=== PATIENT | female | born 1935 | race Caucasian/White ===

== ENCOUNTER → 2017-05-14 | Outpatient (REF) | payer OTHER, MEDICAID | LOC: M SFHCADAM 08:41 | PROVIDERS: ATTEND Physician Assistant Medical | DX: E78.2 Mixed hyperlipidemia (principal); I10 Essential (primary) hypertension; Z53.8 Procedure and treatment not carried out for other reasons ==

== ENCOUNTER → 2017-05-16 | Outpatient (CLI) | payer OTHER, MEDICAID ==
[2017-05-16 17:53] LABS: BASO % 0.5 % (0.0-1.0); EOS # 0.3 K/mm3 (0.0-0.50); EOS % 4.3 % (0.0-3.0); LARGE UNSTAINED CELL # 0.1 K/mm3 (0.0-0.4); LARGE UNSTAINED CELL % 2.1 % (0.0-4.0); LYMPH # 1.9 K/mm3 (1.5-4.5); LYMPH % 29.7 % (24.0-44.0); MEAN CORPUSCULAR HEMOGLOBIN 30.1 pg (27.0-33.0); MEAN CORPUSCULAR VOLUME 93.9 fl (80.0-96.0); MONO # 0.3 K/mm3 (0.0-0.8); MONO % 5.4 % (0.0-5.0); NEUTROPHILS # 3.5 K/mm3 (1.8-7.7); PLATELET COUNT, AUTOMATED 219 k/mm3 (150-450); RED CELL DISTRIBUTION WIDTH 12.9 % (11.5-14.5)
[2017-05-16 18:50] LABS: ALBUMIN/GLOBULIN RATIO 1.29 (1.00-1.93); ALKALINE PHOSPHATASE 363 U/L (45-117); ALT/SGPT 131 U/L (12-78); ANION GAP 9 MEQ/L (8-16); AST/SGOT 87 U/L (15-37); BILIRUBIN,TOTAL 0.7 MG/DL (0.2-1.0); BLOOD UREA NITROGEN 17 MG/DL (7-18); CALCIUM LEVEL 9.2 MG/DL (8.8-10.2); CARBON DIOXIDE LEVEL 29 MEQ/L (21-32); CHLORIDE LEVEL 105 MEQ/L (98-107); CHOLESTEROL LEVEL 184 MG/DL (<200); CREATININE FOR GFR 0.87 MG/DL (0.55-1.02); GLOMERULAR FILTRATION RATE > 60.0 (>32); GLUCOSE, FASTING 105 MG/DL (83-110); POTASSIUM SERUM 4.6 MEQ/L (3.5-5.1); SODIUM LEVEL 143 MEQ/L (136-145); TOTAL PROTEIN 7.1 GM/DL (6.4-8.2); TRIGLYCERIDES LEVEL 119 MG/DL (<150)
== END ==
LOC: M WUC 08:04
PROVIDERS: ATTEND Physician Assistant Medical
DX: E78.2 Mixed hyperlipidemia (principal); I10 Essential (primary) hypertension; E55.9 Vitamin D deficiency, unspecified

== ENCOUNTER → 2017-11-30 | Outpatient (REF) | payer OTHER, MEDICAID ==
[2017-11-30 20:27] LABS: ALBUMIN 3.8 GM/DL (3.2-5.2); ALBUMIN/GLOBULIN RATIO 1.15 (1.00-1.93); ALKALINE PHOSPHATASE 150 U/L (45-117); ALT/SGPT 33 U/L (12-78); ANION GAP 6 MEQ/L (8-16); AST/SGOT 23 U/L (7-37); BILIRUBIN,TOTAL 0.3 MG/DL (0.2-1.0); BLOOD UREA NITROGEN 15 MG/DL (7-18); CALCIUM LEVEL 9.4 MG/DL (8.8-10.2); CARBON DIOXIDE LEVEL 33 MEQ/L (21-32); CHLORIDE LEVEL 104 MEQ/L (98-107); CREATININE FOR GFR 0.96 MG/DL (0.55-1.30); GLOMERULAR FILTRATION RATE 59.5 (>32); GLUCOSE, FASTING 110 MG/DL (70-100); POTASSIUM SERUM 3.8 MEQ/L (3.5-5.1); SODIUM LEVEL 143 MEQ/L (136-145); TOTAL PROTEIN 7.1 GM/DL (6.4-8.2)
== END ==
LOC: M SFHCADAM 13:34
DX: R79.89 Other specified abnormal findings of blood chemistry (principal)
CPT/HCPCS: 80053

== ENCOUNTER → 2018-07-01 | Outpatient (REF) | payer OTHER, MEDICAID ==
[2018-07-01 12:52] LABS: BASO % 0.3 % (0.0-1.0); EOS # 0.2 10^3/uL (0.0-0.50); EOS % 2.2 % (0.0-3.0); HEMOGLOBIN 12.4 g/dl (12.0-15.5); IMMATURE GRANULOCYTE % 0.1 % (0-3.0); LYMPH # 2.2 10^3/uL (1.5-4.5); LYMPH % 32.1 % (24.0-44.0); MEAN CORPUSCULAR HEMOGLOBIN 30.5 pg (27.0-33.0); MEAN CORPUSCULAR HGB CONC 32.6 g/dl (32.0-36.5); MEAN CORPUSCULAR VOLUME 93.6 fl (80.0-96.0); MONO # 0.4 10^3/uL (0.0-0.8); MONO % 6.3 % (0.0-5.0); PLATELET COUNT, AUTOMATED 217 10^3/uL (150-450); RED BLOOD COUNT 4.06 10^6/uL (4.00-5.40); RED CELL DISTRIBUTION WIDTH 12.8 % (11.5-14.5); WHITE BLOOD COUNT 6.8 10^3/uL (4.0-10.0)
[2018-07-01 13:09] LABS: ALBUMIN 3.6 GM/DL (3.2-5.2); ALBUMIN/GLOBULIN RATIO 1.09 (1.00-1.93); ALKALINE PHOSPHATASE 135 U/L (45-117); ALT/SGPT 35 U/L (12-78); ANION GAP 5 MEQ/L (8-16); AST/SGOT 23 U/L (7-37); BILIRUBIN,TOTAL 0.5 MG/DL (0.2-1.0); BLOOD UREA NITROGEN 17 MG/DL (7-18); CALCIUM LEVEL 9.1 MG/DL (8.8-10.2); CARBON DIOXIDE LEVEL 32 MEQ/L (21-32); CHLORIDE LEVEL 106 MEQ/L (98-107); CHOLESTEROL LEVEL 161 MG/DL (<200); CHOLESTEROL RISK RATIO 2.555 (<5); CREATININE FOR GFR 0.91 MG/DL (0.55-1.30); FREE T4 0.87 NG/DL (0.76-1.46); GLOMERULAR FILTRATION RATE > 60.0 (>32); GLUCOSE, FASTING 99 MG/DL (70-100); HDL CHOLESTEROL 63 MG/DL (>40); LDL CHOLESTEROL 79 MG/DL (<100); NON-HDL-C 98 MG/DL; POTASSIUM SERUM 3.6 MEQ/L (3.5-5.1); SODIUM LEVEL 143 MEQ/L (136-145); TOTAL PROTEIN 6.9 GM/DL (6.4-8.2); TRIGLYCERIDES LEVEL 95 MG/DL (<150)
== END ==
LOC: M SFHCADAM 08:13
DX: I10 Essential (primary) hypertension (principal); E78.2 Mixed hyperlipidemia; F03.90 Unspecified dementia, unspecified severity, without behavioral disturbance, psychotic disturbance, mood disturbance, and anxiety
CPT/HCPCS: 80053

== ENCOUNTER → 2018-07-31 | Outpatient (REF) | payer OTHER, MEDICAID | LOC: M LAB REF 10:26 | DX: N39.0 Urinary tract infection, site not specified (principal) | CPT/HCPCS: 87086 ==

== ENCOUNTER → 2019-08-01 | Outpatient (REF) | payer MEDICARE, MEDICAID ==
[2019-08-01 13:06] LABS: BASO % 0.1 % (0.0-1.0); EOS # 0.1 10^3/uL (0.0-0.5); EOS % 0.8 % (0.0-3.0); HEMATOCRIT 41.7 % (36.0-47.0); HEMOGLOBIN 13.2 g/dl (12.0-15.5); LYMPH # 1.8 10^3/uL (1.5-5.0); LYMPH % 23.7 % (24.0-44.0); MEAN CORPUSCULAR HEMOGLOBIN 30.3 pg (27.0-33.0); MEAN CORPUSCULAR HGB CONC 31.7 g/dl (32.0-36.5); MEAN CORPUSCULAR VOLUME 95.9 fl (80.0-96.0); MONO # 0.5 10^3/uL (0.0-0.8); MONO % 6.6 % (0.0-5.0); NEUTROPHILS # 5.1 10^3/uL (1.5-8.5); NEUTROPHILS % 68.5 % (36.0-66.0); PLATELET COUNT, AUTOMATED 214 10^3/uL (150-450); RED BLOOD COUNT 4.35 10^6/uL (4.00-5.40); WHITE BLOOD COUNT 7.4 10^3/uL (4.0-10.0)
[2019-08-01 13:48] LABS: ALBUMIN 3.8 GM/DL (3.2-5.2); ALT/SGPT 28 U/L (12-78); BILIRUBIN,TOTAL 0.5 MG/DL (0.2-1.0); BLOOD UREA NITROGEN 15 MG/DL (7-18); CALCIUM LEVEL 9.5 MG/DL (8.8-10.2); CARBON DIOXIDE LEVEL 29 MEQ/L (21-32); CHLORIDE LEVEL 105 MEQ/L (98-107); CHOLESTEROL LEVEL 181 MG/DL (<200); CHOLESTEROL RISK RATIO 2.967 (<5); CREATININE FOR GFR 0.94 MG/DL (0.55-1.30); GLOMERULAR FILTRATION RATE > 60.0 (>32); GLUCOSE, FASTING 101 MG/DL (70-100); HDL CHOLESTEROL 61 MG/DL (>40); LDL CHOLESTEROL 95 MG/DL (<100); NON-HDL-C 120 MG/DL; POTASSIUM SERUM 3.9 MEQ/L (3.5-5.1); SODIUM LEVEL 141 MEQ/L (136-145); TOTAL PROTEIN 7.1 GM/DL (6.4-8.2); TRIGLYCERIDES LEVEL 124 MG/DL (<150)
== END ==
LOC: M SFHCADAM 09:35
PROVIDERS: ATTEND Physician Assistant Medical
DX: I10 Essential (primary) hypertension (principal); F41.9 Anxiety disorder, unspecified; K21.9 Gastro-esophageal reflux disease without esophagitis; E78.2 Mixed hyperlipidemia; R51 Headache; Z23 Encounter for immunization
CPT/HCPCS: 80053; 80061; 84443; 85025; 90682; G0008; G0463

== ENCOUNTER → 2020-08-27 | Outpatient (REF) | payer MEDICARE, MEDICAID ==
[2020-08-27 12:45] LABS: BASO % 0.2 % (0.0-1.0); EOS # 0.1 10^3/uL (0.0-0.5); EOS % 0.9 % (0.0-3.0); HEMATOCRIT 40.1 % (36.0-47.0); HEMOGLOBIN 12.4 g/dl (12.0-15.5); LYMPH # 1.8 10^3/uL (1.5-5.0); MEAN CORPUSCULAR HEMOGLOBIN 28.9 pg (27.0-33.0); MEAN CORPUSCULAR HGB CONC 30.9 g/dl (32.0-36.5); MEAN CORPUSCULAR VOLUME 93.5 fl (80.0-96.0); MONO # 0.7 10^3/uL (0.0-0.8); MONO % 7.5 % (0.0-5.0); NEUTROPHILS # 6.4 10^3/uL (1.5-8.5); NEUTROPHILS % 71.2 % (36.0-66.0); PLATELET COUNT, AUTOMATED 245 10^3/uL (150-450); RED BLOOD COUNT 4.29 10^6/uL (4.00-5.40)
[2020-08-27 13:04] LABS: ALBUMIN 3.7 GM/DL (3.2-5.2); BILIRUBIN,TOTAL 0.4 MG/DL (0.2-1.0); CALCIUM LEVEL 9.6 MG/DL (8.8-10.2); CHOLESTEROL RISK RATIO 2.738 (<5); CREATININE FOR GFR 0.99 MG/DL (0.55-1.30); THYROID STIMULATING HORMONE 2.99 uIU/ML (0.358-3.740)
== END ==
LOC: M SFHCADAM 09:35
PROVIDERS: ATTEND Physician Assistant Medical
DX: K21.9 Gastro-esophageal reflux disease without esophagitis (principal); I10 Essential (primary) hypertension; E78.2 Mixed hyperlipidemia

== ENCOUNTER → 2022-01-23 | Outpatient (REF) | payer MEDICARE, MEDICAID ==
[2022-01-23 13:33] LABS: APPEARANCE, URINE CLEAR (CLEAR); BACTERIA, URINE AUTO NEGATIVE (NEGATIVE); BILIRUBIN, URINE AUTO NEGATIVE (NEGATIVE); BLOOD, URINE BLOOD NEGATIVE (NEGATIVE); COLOR, URINE YELLOW (YELLOW); GLUCOSE, URINE (UA) AUTO NEGATIVE (NEGATIVE); KETONE, URINE AUTO NEGATIVE (NEGATIVE); LEUKOCYTE ESTERASE, URINE AUTO NEGATIVE (NEGATIVE); NITRITE, URINE AUTO NEGATIVE (NEGATIVE); PROTEIN, URINE AUTO NEGATIVE (NEGATIVE); RBC, URINE AUTO 1 /HPF (0-3); SPECIFIC GRAVITY URINE AUTO 1.008 (1.002-1.035); SQUAMOUS EPITHELIAL CELL UR AU 2 /HPF (0-6); UROBILINOGEN, URINE AUTO 0.2 mg/dL (0.0-2.0); WBC, URINE AUTO 1 /HPF (0-3)
== END ==
LOC: M SFHCADAM 09:57
PROVIDERS: ATTEND Physician Assistant Medical
DX: R35.0 Frequency of micturition (principal)

== ENCOUNTER → 2022-04-14 | Outpatient (REF) | payer MEDICARE, MEDICAID ==
[2022-04-14 13:24] LABS: BASO % 0.2 % (0.0-1.0); EOS # 0.1 10^3/uL (0.0-0.5); HEMATOCRIT 37.4 % (36.0-47.0); HEMOGLOBIN 11.6 g/dl (12.0-15.5); LYMPH # 1.8 10^3/uL (1.5-5.0); LYMPH % 22.2 % (24.0-44.0); MEAN CORPUSCULAR HEMOGLOBIN 27.4 pg (27.0-33.0); MEAN CORPUSCULAR VOLUME 88.4 fl (80.0-96.0); MONO # 0.6 10^3/uL (0.0-0.8); MONO % 7.2 % (2.0-8.0); NEUTROPHILS # 5.7 10^3/uL (1.5-8.5); NEUTROPHILS % 69.2 % (36.0-66.0); PLATELET COUNT, AUTOMATED 212 10^3/uL (150-450); RED BLOOD COUNT 4.23 10^6/uL (4.00-5.40); WHITE BLOOD COUNT 8.2 10^3/uL (4.0-10.0)
[2022-04-14 13:56] LABS: ALBUMIN 3.9 GM/DL (3.2-5.2); ALT/SGPT 20 U/L (12-78); BILIRUBIN,TOTAL 0.4 MG/DL (0.2-1.0); BLOOD UREA NITROGEN 13 MG/DL (7-18); CALCIUM LEVEL 9.4 MG/DL (8.8-10.2); CARBON DIOXIDE LEVEL 29 MEQ/L (21-32); CHLORIDE LEVEL 106 MEQ/L (98-107); CREATININE FOR GFR 0.98 MG/DL (0.55-1.30); FREE T4 0.93 NG/DL (0.76-1.46); GLOMERULAR FILTRATION RATE 57.4 (>32); GLUCOSE, FASTING 98 MG/DL (70-100); POTASSIUM SERUM 3.8 MEQ/L (3.5-5.1); SODIUM LEVEL 141 MEQ/L (136-145)
[2022-04-14 14:14] LABS: TOTAL 25(OH) VITAMIN D 44.6 NG/ML (30.0-100.0); VITAMIN B12 LEVEL 839 PG/ML
[2022-04-14 14:15] LABS: FOLATE > 24.0 NG/ML
== END ==
LOC: M SFHCADAM 09:45
PROVIDERS: ATTEND Physician Assistant
DX: R51.9 Headache, unspecified (principal); G89.29 Other chronic pain; H53.8 Other visual disturbances; R53.83 Other fatigue; I10 Essential (primary) hypertension; Z79.899 Other long term (current) drug therapy

== ENCOUNTER 2022-07-19 20:52 | Inpatient (IN) | payer MEDICARE, MEDICAID ==
[~2022-07-19] VITALS: Ht 162.6 cm; Wt 60.9 kg
[2022-07-19 21:24] LABS: BASO % 0.2 % (0.0-1.0); EOS % 0.2 % (0.0-3.0); HEMATOCRIT 35.5 % (36.0-47.0); HEMOGLOBIN 11.3 g/dl (12.0-15.5); LYMPH # 1.9 10^3/uL (1.5-5.0); LYMPH % 15.8 % (24.0-44.0); MEAN CORPUSCULAR HEMOGLOBIN 28.5 pg (27.0-33.0); MEAN CORPUSCULAR HGB CONC 31.8 g/dl (32.0-36.5); MEAN CORPUSCULAR VOLUME 89.6 fl (80.0-96.0); MONO # 0.6 10^3/uL (0.0-0.8); MONO % 5.4 % (2.0-8.0); NEUTROPHILS % 76.4 % (36.0-66.0); PLATELET COUNT, AUTOMATED 195 10^3/uL (150-450); RED BLOOD COUNT 3.96 10^6/uL (4.00-5.40); WHITE BLOOD COUNT 11.8 10^3/uL (4.0-10.0)
[2022-07-19] MEDS ORDERED: ISOVUE-370 76% 100ML VIAL As Ordered ONE (21:29)
[2022-07-19 21:36] LABS: ABG BASE EXCESS 1.6 (-2.0-2.0); ABG HCO3 26.1 MEQ/L (22.0-26.0); ABG O2 SATURATION 96.4 % (95.0-99.0); ABG PARTIAL PRESSURE CO2 40.9 mmHg (35.0-45.0); ABG PARTIAL PRESSURE O2 82.1 mmHg (75.0-100.0); ABG STANDARD HCO3 25.8 MEQ/L (22.0-26.0); ABG TOTAL CO2 27.4 MEQ/L (23.0-31.0); ABG pH (ARTERIAL) 7.423 UNITS (7.350-7.450)
[2022-07-19 21:37] LABS: PROTHROMBIN TIME 13.6 SECONDS (12.7-14.5)
[2022-07-19 21:38] LABS: PARTIAL THROMBOPLASTIN TIME 33.6 SECONDS (25.9-37.0)
[2022-07-19 21:58] LABS: ALBUMIN 3.1 GM/DL (3.2-5.2); ALT/SGPT 37 U/L (12-78); AMYLASE 42 U/L (25-115); BILIRUBIN,DIRECT 0.2 MG/DL (0.0-0.2); BILIRUBIN,TOTAL 0.6 MG/DL (0.2-1.0); BLOOD UREA NITROGEN 13 MG/DL (7-18); CALCIUM LEVEL 9.1 MG/DL (8.8-10.2); CARBON DIOXIDE LEVEL 29 MEQ/L (21-32); CHLORIDE LEVEL 107 MEQ/L (98-107); ETHYL ALCOHOL (ETHANOL) < 0.003 % (0.000-0.010); GLOMERULAR FILTRATION RATE > 60.0 (>32); GLUCOSE, FASTING 137 MG/DL (70-100); LIPASE 93 U/L (73-393); POTASSIUM SERUM 3.3 MEQ/L (3.5-5.1); SODIUM LEVEL 141 MEQ/L (136-145); TOTAL PROTEIN 6.3 GM/DL (6.4-8.2)
[2022-07-19 22:00] LABS: CK-MB VALUE MASS 12.2 NG/ML (<3.6); MB/CK RELATIVE INDEX 4.6 (< OR =4)
[2022-07-19] MEDS ORDERED: ACETAMINOPHEN TAB 650MG DOSE (2X325MG) PO ONE (22:50)
[2022-07-19] MEDS ORDERED: ONDANSETRON 4MG 2ML VIAL IV ONE (23:50)
[2022-07-19] MEDS ORDERED: MORPHINE 2 MG/ML 1ML VIAL IV PRN (23:50)
[2022-07-19 23:51] LABS: AMPHETAMINES LEVEL URINE NEGATIVE (NEGATIVE); BARBITURATES URINE NEGATIVE (NEGATIVE); BENZODIAZEPINES URINE NEGATIVE (NEGATIVE); CANNABINOIDS URINE NEGATIVE (NEGATIVE); COCAINE METABOLITE URINE NEGATIVE (NEGATIVE); METHADONE URINE NEGATIVE (NEGATIVE); OPIATES URINE NEGATIVE (NEGATIVE); PHENCYCLIDINE URINE NEGATIVE (NEGATIVE)
[2022-07-20] MEDS ORDERED: UNRESOLVED CLARIFICATION ENTRY XX SCH (00:01)
[2022-07-20] MEDS ORDERED: LISI20TA33 PO (00:10)
[2022-07-20] MEDS ORDERED: OMEP40CA5 PO (00:10)
[2022-07-20] MEDS ORDERED: MEMA10TA19 PO (00:10)
[2022-07-20] MEDS ORDERED: XALA0.007 OU (00:10)
[2022-07-20] MEDS ORDERED: ATOR40TA75 PO (00:10)
[2022-07-20] MEDS ORDERED: QUET50TA4 PO (00:10)
[2022-07-20] MEDS ORDERED: ONDANSETRON 4MG 2ML VIAL IV PRN (00:30)
[2022-07-20] MEDS ORDERED: HOME MED LIST COMPLETE! XX SCH (00:30)
[2022-07-20] MEDS ORDERED: ACETAMINOPHEN TAB 650MG DOSE (2X325MG) PO PRN (00:30)
[2022-07-20] MEDS ORDERED: BENZONATATE 100MG CAPSULE PO PRN (00:35)
[2022-07-20] MEDS ORDERED: dexameTHASONE 20MG/5ML VIAL (J1100 PER 1MG) IV ONE (00:50)
[2022-07-20] MEDS ORDERED: REMDESIVIR 200 MG in NS 250 ML IV ONE (02:00)
[2022-07-20] MEDS: NS 1,000 ML IV SCH ×2 (02:12→11:39)
[2022-07-20] MEDS ORDERED: SODIUM CHLORIDE 0.9% INJ 10 ML SYR IV ONE (04:00)
[2022-07-20 07:15] LABS: HEMATOCRIT 36.9 % (36.0-47.0); HEMOGLOBIN 11.5 g/dl (12.0-15.5); MEAN CORPUSCULAR HEMOGLOBIN 28.4 pg (27.0-33.0); MEAN CORPUSCULAR HGB CONC 31.2 g/dl (32.0-36.5); MEAN CORPUSCULAR VOLUME 91.1 fl (80.0-96.0); PLATELET COUNT, AUTOMATED 193 10^3/uL (150-450); RED BLOOD COUNT 4.05 10^6/uL (4.00-5.40); WHITE BLOOD COUNT 9.8 10^3/uL (4.0-10.0)
[2022-07-20 07:41] LABS: BLOOD UREA NITROGEN 11 MG/DL (7-18); CALCIUM LEVEL 8.6 MG/DL (8.8-10.2); CARBON DIOXIDE LEVEL 27 MEQ/L (21-32); CHLORIDE LEVEL 109 MEQ/L (98-107); GLOMERULAR FILTRATION RATE > 60.0 (>32); GLUCOSE, FASTING 165 MG/DL (70-100); MAGNESIUM LEVEL 2.1 MG/DL (1.8-2.4); POTASSIUM SERUM 3.7 MEQ/L (3.5-5.1); SODIUM LEVEL 142 MEQ/L (136-145)
[2022-07-20] MEDS: MEMANTINE 5MG TABLET (NAMENDA) PO SCH ×2 (09:00→21:27)
[2022-07-20] MEDS: QUEtiapine FUMARATE 50MG TAB PO SCH (11:38)
[2022-07-20] MEDS: KETOROLAC 30 MG/ML 1ML VIAL IV PRN (11:38)
[2022-07-20] MEDS: MORPHINE 2 MG/ML 1ML VIAL IV PRN ×2 (11:38→18:26)
[2022-07-20] MEDS: guaiFENesin ER 600 MG TAB PO SCH ×2 (11:38→21:27)
[2022-07-20] MEDS: OMEPRAZOLE 20MG CAP PO SCH (11:38)
[2022-07-20] MEDS ORDERED: dexameTHASONE 20MG/5ML VIAL (J1100 PER 1MG) IV SCH (12:05)
[2022-07-20] MEDS: ACETAMINOPHEN TAB 650MG DOSE (2X325MG) PO SCH ×3 (15:43→21:27)
[2022-07-20] MEDS ORDERED: LIDOCAINE 2% 100MG/5ML SDV (FOR ANES.) As Ordered ONE (16:15)
[2022-07-20] MEDS ORDERED: KETAMINE HCL 200 MG/20 ML VIAL As Ordered ONE (16:15)
[2022-07-20] MEDS ORDERED: MIDAZOLAM INJ 2MG/2ML VIAL (J2250 PER 1MG) As Ordered ONE (16:15)
[2022-07-20] MEDS ORDERED: fentaNYL 100 MCG/2 ML INJECTION As Ordered ONE (16:15)
[2022-07-20] MEDS ORDERED: propofoL 200 MG/20 ML VIAL As Ordered ONE (16:15)
[2022-07-20 17:40] VITALS: BP 154/70
[2022-07-20 18:17] VITALS: BP 158/78
[2022-07-20 18:20] VITALS: BP 158/78
[2022-07-20 19:35] VITALS: BP 145/80
[2022-07-20 21:22] VITALS: BP 149/56
[2022-07-20] MEDS: ATORVASTATIN 20 MG TAB PO SCH (21:27)
[2022-07-20] MEDS: LIDOCAINE 5% (LIDODERM) PATCH TD SCH (21:28)
[2022-07-20] MEDS: LATANOPROST 0.005% OPHTH SOLN 2.5 ML OU SCH (21:28)
[2022-07-20 22:30] VITALS: BP 118/51
[2022-07-21] MEDS ORDERED: UNRESOLVED CLARIFICATION ENTRY XX SCH (00:01)
[2022-07-21] MEDS: ACETAMINOPHEN TAB 650MG DOSE (2X325MG) PO SCH ×6 (01:17→20:34)
[2022-07-21] MEDS: NS 1,000 ML IV SCH ×2 (01:17→06:30)
[2022-07-21 02:35] VITALS: BP 134/60
[2022-07-21] MEDS: MORPHINE 2 MG/ML 1ML VIAL IV PRN (04:09)
[2022-07-21 06:00] VITALS: BP 133/68; O2SAT 95
[2022-07-21] MEDS: REMDESIVIR 100 MG in NS 250 ML IV SCH (06:00)
[2022-07-21 06:56] LABS: HEMATOCRIT 28.6 % (36.0-47.0); MEAN CORPUSCULAR HEMOGLOBIN 28.8 pg (27.0-33.0); MEAN CORPUSCULAR HGB CONC 31.5 g/dl (32.0-36.5); MEAN CORPUSCULAR VOLUME 91.4 fl (80.0-96.0); PLATELET COUNT, AUTOMATED 163 10^3/uL (150-450); RED BLOOD COUNT 3.13 10^6/uL (4.00-5.40); WHITE BLOOD COUNT 10.2 10^3/uL (4.0-10.0)
[2022-07-21 07:25] LABS: ALBUMIN 1.9 GM/DL (3.2-5.2); ALT/SGPT 27 U/L (12-78); BILIRUBIN,DIRECT 0.2 MG/DL (0.0-0.2); BILIRUBIN,TOTAL 0.5 MG/DL (0.2-1.0); BLOOD UREA NITROGEN 18 MG/DL (7-18); CALCIUM LEVEL 6.1 MG/DL (8.8-10.2); CARBON DIOXIDE LEVEL 20 MEQ/L (21-32); CHLORIDE LEVEL 119 MEQ/L (98-107); GLOMERULAR FILTRATION RATE > 60.0 (>32); GLUCOSE, FASTING 80 MG/DL (70-100); MAGNESIUM LEVEL 1.6 MG/DL (1.8-2.4); SODIUM LEVEL 146 MEQ/L (136-145); TOTAL PROTEIN 4.2 GM/DL (6.4-8.2)
[2022-07-21] MEDS: SODIUM CHLORIDE 0.9% INJ 10 ML SYR IV SCH ×2 (07:44→17:35)
[2022-07-21] MEDS: **NOTE PATIENT COMMENT** MISC XX SCH (09:00)
[2022-07-21] MEDS: OMEPRAZOLE 20MG CAP PO SCH (09:53)
[2022-07-21] MEDS: QUEtiapine FUMARATE 50MG TAB PO SCH (09:53)
[2022-07-21] MEDS: guaiFENesin ER 600 MG TAB PO SCH ×2 (09:53→20:35)
[2022-07-21] MEDS: MEMANTINE 5MG TABLET (NAMENDA) PO SCH ×2 (09:53→20:35)
[2022-07-21 10:00] VITALS: BP 132/62
[2022-07-21] MEDS ORDERED: MAG SULF 1GM/100ML (MAG RUN) 1 GM in IV 1 EA IV SCH (13:00)
[2022-07-21] MEDS: POTASSIUM CHLORIDE 10MEQ SR TABLET PO SCH ×2 (13:40→17:36)
[2022-07-21 14:00] VITALS: BP 155/69
[2022-07-21] MEDS ORDERED: LIDOCAINE 1% MDV 20ML VIAL As Ordered ONE (15:18)
[2022-07-21] MEDS ORDERED: MORPHINE 2 MG/ML 1ML VIAL IV ONE ×2 (17:00→20:15)
[2022-07-21] MEDS ORDERED: POTASSIUM CHLORIDE 10MEQ SR TABLET PO SCH (17:30)
[2022-07-21] MEDS: MAG SULF 1GM/100ML (MAG RUN) 1 GM in IV 1 EA IV SCH ×2 (17:35→18:39)
[2022-07-21] MEDS: ENOXAPARIN 40MG/0.4ML SYRINGE (J1650 PER 10MG) SC SCH (17:35)
[2022-07-21] MEDS: dexameTHASONE 4 MG/ML 1ML VIAL (J1100 PER 1MG) IV SCH (17:36)
[2022-07-21 18:00] VITALS: BP 149/66
[2022-07-21] MEDS ORDERED: ASPIRIN 325 MG TAB PO ONE (18:25)
[2022-07-21 19:31] VITALS: BP 133/68
[2022-07-21] MEDS: SODIUM CHLORIDE 0.9% INJ 10 ML SYR IV PRN ×2 (19:48→20:36)
[2022-07-21] MEDS ORDERED: COMBIVENT RESPIMAT 100-20MCG INHALER 4GM INH PRN (20:20)
[2022-07-21] MEDS: LATANOPROST 0.005% OPHTH SOLN 2.5 ML OU SCH (20:35)
[2022-07-21] MEDS: ATORVASTATIN 20 MG TAB PO SCH (20:35)
[2022-07-21] MEDS: METOPROLOL TART 12.5 MG PER 1/2 TAB PO SCH (20:35)
[2022-07-21] MEDS: LIDOCAINE 5% (LIDODERM) PATCH TD SCH (20:36)
[2022-07-22 02:00] VITALS: BP 135/68
[2022-07-22 02:10] VITALS: O2SAT 95
[2022-07-22] MEDS: SODIUM CHLORIDE 0.9% INJ 10 ML SYR IV PRN ×6 (04:39→23:31)
[2022-07-22] MEDS: REMDESIVIR 100 MG in NS 250 ML IV SCH ×2 (04:43→06:05)
[2022-07-22] MEDS: ACETAMINOPHEN TAB 650MG DOSE (2X325MG) PO SCH ×7 (04:44→23:28)
[2022-07-22 04:45] VITALS: BP 175/71
[2022-07-22] MEDS ORDERED: MORPHINE 2 MG/ML 1ML VIAL IV ONE (05:00)
[2022-07-22 06:11] LABS: HEMATOCRIT 31.8 % (36.0-47.0); HEMOGLOBIN 10.2 g/dl (12.0-15.5); MEAN CORPUSCULAR HEMOGLOBIN 28.7 pg (27.0-33.0); MEAN CORPUSCULAR HGB CONC 32.1 g/dl (32.0-36.5); MEAN CORPUSCULAR VOLUME 89.6 fl (80.0-96.0); PLATELET COUNT, AUTOMATED 211 10^3/uL (150-450); RED BLOOD COUNT 3.55 10^6/uL (4.00-5.40); VENOUS BASE EXCESS -3.4 (-2.0-2.0); VENOUS HCO3 20.9 MEQ/L (23.0-27.0); VENOUS O2 SATURATION 98.8 % (60.0-80.0); VENOUS PARTIAL PRESSURE CO2 35.1 mmHg (38.0-50.0); VENOUS PARTIAL PRESSURE O2 146.5 mmHg (30.0-50.0); VENOUS PH 7.393 UNITS (7.330-7.430); VENOUS STANDARD HCO3 21.6 MEQ/L; WHITE BLOOD COUNT 9.4 10^3/uL (4.0-10.0)
[2022-07-22 06:47] LABS: BLOOD UREA NITROGEN 19 MG/DL (7-18); CARBON DIOXIDE LEVEL 25 MEQ/L (21-32); CHLORIDE LEVEL 114 MEQ/L (98-107); CREATININE FOR GFR 0.65 MG/DL (0.55-1.30); GLOMERULAR FILTRATION RATE > 60.0 (>32); GLUCOSE, FASTING 133 MG/DL (70-100); MAGNESIUM LEVEL 2.7 MG/DL (1.8-2.4); POTASSIUM SERUM 4.7 MEQ/L (3.5-5.1); SODIUM LEVEL 142 MEQ/L (136-145)
[2022-07-22] MEDS: SODIUM CHLORIDE 0.9% INJ 10 ML SYR IV SCH ×2 (07:57→17:05)
[2022-07-22] MEDS: ASPIRIN 81MG ENTERIC TABLET PO SCH (08:35)
[2022-07-22] MEDS: guaiFENesin ER 600 MG TAB PO SCH ×2 (08:42→23:27)
[2022-07-22] MEDS: K-PHOS ORIGINAL (POT.ACID PHOSPHATE) 500MG TAB PO SCH ×2 (08:42→23:26)
[2022-07-22] MEDS: MEMANTINE 5MG TABLET (NAMENDA) PO SCH ×2 (08:42→23:27)
[2022-07-22] MEDS: METOPROLOL TART 12.5 MG PER 1/2 TAB PO SCH ×2 (08:43→22:59)
[2022-07-22] MEDS: OMEPRAZOLE 20MG CAP PO SCH (08:43)
[2022-07-22] MEDS: QUEtiapine FUMARATE 25 MG TAB PO SCH (08:43)
[2022-07-22] MEDS: dexameTHASONE 4 MG/ML 1ML VIAL (J1100 PER 1MG) IV SCH (08:44)
[2022-07-22] MEDS: ENOXAPARIN 40MG/0.4ML SYRINGE (J1650 PER 10MG) SC SCH (08:44)
[2022-07-22] MEDS: **NOTE PATIENT COMMENT** MISC XX SCH (09:00)
[2022-07-22] MEDS: BARICITINIB 2MG TABLET (OLUMIANT) FOR EUA PO SCH (09:00)
[2022-07-22 10:00] VITALS: BP 173/81
[2022-07-22] MEDS ORDERED: FUROSEMIDE 20MG/2ML VIAL (J1940) IV ONE (10:30)
[2022-07-22] MEDS: MORPHINE 2 MG/ML 1ML VIAL IV PRN ×3 (11:02→23:29)
[2022-07-22] MEDS ORDERED: OLANZapine INTRAMUSCULAR 10MG VIAL IM ONE (14:55)
[2022-07-22] MEDS ORDERED: HALOPERIDOL 5MG/ML VIAL (J1630 PER 1) IV PRN (15:15)
[2022-07-22 21:00] VITALS: BP 166/71
[2022-07-22] MEDS ORDERED: amLODIPine 5 MG TAB PO ONE (21:00)
[2022-07-22] MEDS ORDERED: amLODIPine 5 MG TAB PO SCH (21:00)
[2022-07-22 22:57] VITALS: BP 143/77
[2022-07-22] MEDS: ATORVASTATIN 20 MG TAB PO SCH (23:26)
[2022-07-22] MEDS: LATANOPROST 0.005% OPHTH SOLN 2.5 ML OU SCH (23:28)
[2022-07-22] MEDS: DOCUSATE SODIUM 100MG CAPSULE PO SCH (23:28)
[2022-07-22] MEDS: LIDOCAINE 5% (LIDODERM) PATCH TD SCH (23:29)
[2022-07-23 03:58] VITALS: O2SAT 93
[2022-07-23] MEDS: ACETAMINOPHEN TAB 650MG DOSE (2X325MG) PO SCH ×5 (05:08→20:00)
[2022-07-23] MEDS: SODIUM CHLORIDE 0.9% INJ 10 ML SYR IV PRN (05:09)
[2022-07-23] MEDS: REMDESIVIR 100 MG in NS 250 ML IV SCH (05:09)
[2022-07-23 05:13] VITALS: BP 173/62
[2022-07-23] MEDS: MORPHINE 2 MG/ML 1ML VIAL IV PRN ×2 (05:16→08:28)
[2022-07-23 06:17] LABS: BASO % 0.2 % (0.0-1.0); HEMATOCRIT 32.8 % (36.0-47.0); HEMOGLOBIN 10.4 g/dl (12.0-15.5); LYMPH # 1.2 10^3/uL (1.5-5.0); LYMPH % 10.6 % (24.0-44.0); MEAN CORPUSCULAR HEMOGLOBIN 28.5 pg (27.0-33.0); MEAN CORPUSCULAR HGB CONC 31.7 g/dl (32.0-36.5); MEAN CORPUSCULAR VOLUME 89.9 fl (80.0-96.0); MONO # 0.8 10^3/uL (0.0-0.8); MONO % 7.3 % (2.0-8.0); NEUTROPHILS % 80.7 % (36.0-66.0); PLATELET COUNT, AUTOMATED 229 10^3/uL (150-450); RED BLOOD COUNT 3.65 10^6/uL (4.00-5.40); WHITE BLOOD COUNT 11.1 10^3/uL (4.0-10.0)
[2022-07-23] MEDS: SODIUM CHLORIDE 0.9% INJ 10 ML SYR IV SCH ×2 (06:33→17:46)
[2022-07-23 06:34] VITALS: BP 173/60
[2022-07-23 07:07] LABS: ALBUMIN 2.7 GM/DL (3.2-5.2); ALT/SGPT 33 U/L (12-78); BILIRUBIN,DIRECT 0.2 MG/DL (0.0-0.2); BILIRUBIN,TOTAL 0.6 MG/DL (0.2-1.0); BLOOD UREA NITROGEN 23 MG/DL (7-18); CALCIUM LEVEL 8.1 MG/DL (8.8-10.2); CARBON DIOXIDE LEVEL 27 MEQ/L (21-32); CHLORIDE LEVEL 110 MEQ/L (98-107); CREATININE FOR GFR 0.66 MG/DL (0.55-1.30); GLOMERULAR FILTRATION RATE > 60.0 (>32); GLUCOSE, FASTING 116 MG/DL (70-100); MAGNESIUM LEVEL 2.4 MG/DL (1.8-2.4); PHOSPHORUS LEVEL 2.1 MG/DL (2.5-4.9); POTASSIUM SERUM 4.2 MEQ/L (3.5-5.1); SODIUM LEVEL 141 MEQ/L (136-145); TOTAL PROTEIN 5.8 GM/DL (6.4-8.2)
[2022-07-23] MEDS: dexameTHASONE 4 MG/ML 1ML VIAL (J1100 PER 1MG) IV SCH (08:59)
[2022-07-23] MEDS: ENOXAPARIN 40MG/0.4ML SYRINGE (J1650 PER 10MG) SC SCH (08:59)
[2022-07-23] MEDS: OMEPRAZOLE 20MG CAP PO SCH (08:59)
[2022-07-23] MEDS ORDERED: DOCUSATE SODIUM 100MG CAPSULE PO SCH (09:00)
[2022-07-23] MEDS: BARICITINIB 2MG TABLET (OLUMIANT) FOR EUA PO SCH (09:00)
[2022-07-23] MEDS: KETOROLAC 30 MG/ML 1ML VIAL IV PRN (09:00)
[2022-07-23] MEDS: guaiFENesin ER 600 MG TAB PO SCH ×2 (09:01→22:30)
[2022-07-23] MEDS: QUEtiapine FUMARATE 25 MG TAB PO SCH (09:01)
[2022-07-23] MEDS: MEMANTINE 5MG TABLET (NAMENDA) PO SCH ×2 (09:01→22:30)
[2022-07-23] MEDS: METOPROLOL TART 12.5 MG PER 1/2 TAB PO SCH ×2 (09:01→21:00)
[2022-07-23] MEDS: **NOTE PATIENT COMMENT** MISC XX SCH (09:02)
[2022-07-23] MEDS: ASPIRIN 81MG ENTERIC TABLET PO SCH (09:02)
[2022-07-23] MEDS: DOCUSATE SODIUM 100MG CAPSULE PO SCH ×2 (09:02→22:30)
[2022-07-23] MEDS: MIRALAX *UNIT DOSE* 17GM PACKET PO SCH (09:02)
[2022-07-23 14:00] VITALS: BP 176/66
[2022-07-23] MEDS ORDERED: SODIUM PHOSPHATE INJ 20 MMOL in D5W 250 ML IV ONE (17:00)
[2022-07-23 18:26] VITALS: BP 124/51
[2022-07-23 20:00] VITALS: BP 153/60
[2022-07-23] MEDS: LIDOCAINE 5% (LIDODERM) PATCH TD SCH (21:00)
[2022-07-23] MEDS: LATANOPROST 0.005% OPHTH SOLN 2.5 ML OU SCH (21:00)
[2022-07-23] MEDS: PERCOCET 5MG/325MG TAB PO PRN (22:30)
[2022-07-23] MEDS: ATORVASTATIN 20 MG TAB PO SCH (22:31)
[2022-07-23] MEDS: amLODIPine 5 MG TAB PO SCH (22:32)
[2022-07-24] MEDS: ACETAMINOPHEN TAB 650MG DOSE (2X325MG) PO SCH ×4 (05:54→12:18)
[2022-07-24] MEDS: MORPHINE 2 MG/ML 1ML VIAL IV PRN (05:55)
[2022-07-24] MEDS: SODIUM CHLORIDE 0.9% INJ 10 ML SYR IV SCH ×2 (05:55→17:59)
[2022-07-24] MEDS: REMDESIVIR 100 MG in NS 250 ML IV SCH (05:55)
[2022-07-24 06:00] VITALS: BP 145/61
[2022-07-24 06:42] LABS: HEMATOCRIT 32.7 % (36.0-47.0); HEMOGLOBIN 10.4 g/dl (12.0-15.5); MEAN CORPUSCULAR HEMOGLOBIN 28.1 pg (27.0-33.0); MEAN CORPUSCULAR HGB CONC 31.8 g/dl (32.0-36.5); MEAN CORPUSCULAR VOLUME 88.4 fl (80.0-96.0); PLATELET COUNT, AUTOMATED 250 10^3/uL (150-450); WHITE BLOOD COUNT 8.8 10^3/uL (4.0-10.0)
[2022-07-24 07:12] LABS: BLOOD UREA NITROGEN 23 MG/DL (7-18); CARBON DIOXIDE LEVEL 26 MEQ/L (21-32); CHLORIDE LEVEL 108 MEQ/L (98-107); CREATININE FOR GFR 0.57 MG/DL (0.55-1.30); GLOMERULAR FILTRATION RATE > 60.0 (>32); GLUCOSE, FASTING 128 MG/DL (70-100); MAGNESIUM LEVEL 2.3 MG/DL (1.8-2.4); PHOSPHORUS LEVEL 2.4 MG/DL (2.5-4.9); POTASSIUM SERUM 3.7 MEQ/L (3.5-5.1); SODIUM LEVEL 140 MEQ/L (136-145)
[2022-07-24] MEDS: MIRALAX *UNIT DOSE* 17GM PACKET PO SCH (08:51)
[2022-07-24] MEDS: dexameTHASONE 4 MG/ML 1ML VIAL (J1100 PER 1MG) IV SCH (08:52)
[2022-07-24] MEDS: ENOXAPARIN 40MG/0.4ML SYRINGE (J1650 PER 10MG) SC SCH (08:53)
[2022-07-24] MEDS: OMEPRAZOLE 20MG CAP PO SCH (08:53)
[2022-07-24] MEDS: DOCUSATE SODIUM 100MG CAPSULE PO SCH ×2 (08:53→20:43)
[2022-07-24] MEDS: QUEtiapine FUMARATE 12.5 MG HALF-TAB PO SCH (08:54)
[2022-07-24] MEDS: MEMANTINE 5MG TABLET (NAMENDA) PO SCH ×2 (08:54→20:43)
[2022-07-24] MEDS: METOPROLOL TART 12.5 MG PER 1/2 TAB PO SCH ×2 (08:54→20:43)
[2022-07-24] MEDS: ASPIRIN 81MG ENTERIC TABLET PO SCH (08:54)
[2022-07-24] MEDS: guaiFENesin ER 600 MG TAB PO SCH ×2 (08:55→20:43)
[2022-07-24] MEDS: PERCOCET 5MG/325MG TAB PO PRN (08:56)
[2022-07-24] MEDS: SODIUM CHLORIDE 0.9% INJ 10 ML SYR IV PRN (08:57)
[2022-07-24] MEDS: **NOTE PATIENT COMMENT** MISC XX SCH (09:00)
[2022-07-24] MEDS ORDERED: NALOXONE INJ 0.4MG/1ML VIAL (J2310 PER 1MG) IV PRN (11:30)
[2022-07-24] MEDS: BARICITINIB 2MG TABLET (OLUMIANT) FOR EUA PO SCH (12:18)
[2022-07-24] MEDS: PERCOCET 5MG/325MG TAB PO SCH ×3 (13:18→22:59)
[2022-07-24 14:00] VITALS: BP 167/60
[2022-07-24] MEDS ORDERED: POTASSIUM PHOSPHATE INJ 20 MMOL in D5W 250 ML IV ONE (14:00)
[2022-07-24] MEDS ORDERED: MORPHINE 2 MG/ML 1ML VIAL IV PRN (14:30)
[2022-07-24 20:04] VITALS: BP 135/99
[2022-07-24] MEDS: ATORVASTATIN 20 MG TAB PO SCH (20:43)
[2022-07-24] MEDS: amLODIPine 5 MG TAB PO SCH (20:44)
[2022-07-24] MEDS: LIDOCAINE 5% (LIDODERM) PATCH TD SCH (20:44)
[2022-07-24] MEDS: LATANOPROST 0.005% OPHTH SOLN 2.5 ML OU SCH (22:58)
[2022-07-24 23:58] VITALS: O2SAT 94
[2022-07-25] VITALS (7 sets, daily range): BP systolic 154–189; BP diastolic 64–75
[2022-07-25] MEDS: SODIUM CHLORIDE 0.9% INJ 10 ML SYR IV PRN ×2 (03:17→04:04)
[2022-07-25] MEDS ORDERED: cefTRIAXone SOD 1 GM in D5W MINI-BAG PLUS 50 ML IV SCH (04:00)
[2022-07-25] MEDS: PERCOCET 5MG/325MG TAB PO SCH ×4 (05:23→23:31)
[2022-07-25] MEDS: PHENAZOPYRIDINE 100 MG TAB PO PRN ×3 (06:04→21:56)
[2022-07-25 06:33] LABS: HEMATOCRIT 35.3 % (36.0-47.0); HEMOGLOBIN 11.4 g/dl (12.0-15.5); MEAN CORPUSCULAR HEMOGLOBIN 28.4 pg (27.0-33.0); MEAN CORPUSCULAR HGB CONC 32.3 g/dl (32.0-36.5); PLATELET COUNT, AUTOMATED 277 10^3/uL (150-450); RED BLOOD COUNT 4.01 10^6/uL (4.00-5.40); WHITE BLOOD COUNT 10.1 10^3/uL (4.0-10.0)
[2022-07-25 07:07] LABS: BLOOD UREA NITROGEN 20 MG/DL (7-18); CALCIUM LEVEL 8.5 MG/DL (8.8-10.2); CARBON DIOXIDE LEVEL 27 MEQ/L (21-32); CHLORIDE LEVEL 105 MEQ/L (98-107); CREATININE FOR GFR 0.64 MG/DL (0.55-1.30); GLOMERULAR FILTRATION RATE > 60.0 (>32); GLUCOSE, FASTING 97 MG/DL (70-100); MAGNESIUM LEVEL 2.3 MG/DL (1.8-2.4); PHOSPHORUS LEVEL 2.7 MG/DL (2.5-4.9); SODIUM LEVEL 138 MEQ/L (136-145)
[2022-07-25] MEDS: BARICITINIB 2MG TABLET (OLUMIANT) FOR EUA PO SCH (08:36)
[2022-07-25] MEDS: METOPROLOL TART 12.5 MG PER 1/2 TAB PO SCH ×2 (08:36→21:57)
[2022-07-25] MEDS: ASPIRIN 81MG ENTERIC TABLET PO SCH (08:36)
[2022-07-25] MEDS: ENOXAPARIN 40MG/0.4ML SYRINGE (J1650 PER 10MG) SC SCH (08:37)
[2022-07-25] MEDS: OMEPRAZOLE 20MG CAP PO SCH (08:37)
[2022-07-25] MEDS: MIRALAX *UNIT DOSE* 17GM PACKET PO SCH (08:37)
[2022-07-25] MEDS: QUEtiapine FUMARATE 12.5 MG HALF-TAB PO SCH (08:37)
[2022-07-25] MEDS: MEMANTINE 5MG TABLET (NAMENDA) PO SCH ×2 (08:37→21:57)
[2022-07-25] MEDS: DOCUSATE SODIUM 100MG CAPSULE PO SCH ×2 (08:37→21:56)
[2022-07-25] MEDS: guaiFENesin ER 600 MG TAB PO SCH ×2 (08:38→21:56)
[2022-07-25] MEDS: dexameTHASONE 4 MG/ML 1ML VIAL (J1100 PER 1MG) IV SCH (08:38)
[2022-07-25] MEDS: **NOTE PATIENT COMMENT** MISC XX SCH (08:39)
[2022-07-25] MEDS ORDERED: **hydrALAZINE** 10 MG TAB PO ONE ×2 (12:00→17:10)
[2022-07-25] MEDS ORDERED: traMADol 50 MG TAB PO ONE (14:00)
[2022-07-25] MEDS: ATORVASTATIN 20 MG TAB PO SCH (21:56)
[2022-07-25] MEDS: LATANOPROST 0.005% OPHTH SOLN 2.5 ML OU SCH (21:57)
[2022-07-25] MEDS: LIDOCAINE 5% (LIDODERM) PATCH TD SCH (21:57)
[2022-07-25] MEDS: CEFDINIR 300 MG CAP (OMNICEF) PO SCH (21:57)
[2022-07-25] MEDS: amLODIPine 5 MG TAB PO SCH (21:58)
[2022-07-25] MEDS: **hydrALAZINE HCL** 25 MG TAB PO SCH (21:58)
[2022-07-25] MEDS ORDERED: **hydrALAZINE** 10 MG TAB PO SCH (22:00)
[2022-07-26] MEDS ORDERED: HYOSCYAMINE SULFATE 0.125 MG SUBL TABLET PO ONE (02:00)
[2022-07-26] MEDS: BISACODYL 5 MG TAB PO PRN ×2 (02:13→07:52)
[2022-07-26] MEDS: traMADol 50 MG TAB PO PRN (02:14)
[2022-07-26 06:36] VITALS: BP 161/71; O2SAT 93
[2022-07-26] MEDS: **hydrALAZINE HCL** 25 MG TAB PO SCH ×3 (06:40→23:54)
[2022-07-26] MEDS: PERCOCET 5MG/325MG TAB PO SCH ×4 (06:42→23:14)
[2022-07-26 06:44] LABS: HEMATOCRIT 34.7 % (36.0-47.0); HEMOGLOBIN 11.5 g/dl (12.0-15.5); MEAN CORPUSCULAR HEMOGLOBIN 29.2 pg (27.0-33.0); MEAN CORPUSCULAR HGB CONC 33.1 g/dl (32.0-36.5); MEAN CORPUSCULAR VOLUME 88.1 fl (80.0-96.0); PLATELET COUNT, AUTOMATED 311 10^3/uL (150-450); RED BLOOD COUNT 3.94 10^6/uL (4.00-5.40); WHITE BLOOD COUNT 12.5 10^3/uL (4.0-10.0)
[2022-07-26 07:20] LABS: BLOOD UREA NITROGEN 19 MG/DL (7-18); CALCIUM LEVEL 8.8 MG/DL (8.8-10.2); CARBON DIOXIDE LEVEL 28 MEQ/L (21-32); CHLORIDE LEVEL 104 MEQ/L (98-107); CREATININE FOR GFR 0.65 MG/DL (0.55-1.30); GLOMERULAR FILTRATION RATE > 60.0 (>32); GLUCOSE, FASTING 98 MG/DL (70-100); MAGNESIUM LEVEL 2.3 MG/DL (1.8-2.4); POTASSIUM SERUM 4.2 MEQ/L (3.5-5.1); SODIUM LEVEL 138 MEQ/L (136-145)
[2022-07-26] MEDS: DOCUSATE SODIUM 100MG CAPSULE PO SCH ×2 (07:51→23:11)
[2022-07-26] MEDS: ASPIRIN 81MG ENTERIC TABLET PO SCH (07:51)
[2022-07-26] MEDS: CEFDINIR 300 MG CAP (OMNICEF) PO SCH ×2 (07:51→23:20)
[2022-07-26] MEDS: guaiFENesin ER 600 MG TAB PO SCH ×2 (07:51→23:12)
[2022-07-26] MEDS: OMEPRAZOLE 20MG CAP PO SCH (07:52)
[2022-07-26] MEDS: QUEtiapine FUMARATE 12.5 MG HALF-TAB PO SCH (07:52)
[2022-07-26] MEDS: BARICITINIB 2MG TABLET (OLUMIANT) FOR EUA PO SCH (07:52)
[2022-07-26] MEDS: METOPROLOL TART 12.5 MG PER 1/2 TAB PO SCH ×2 (07:53→23:21)
[2022-07-26] MEDS: MEMANTINE 5MG TABLET (NAMENDA) PO SCH ×2 (07:53→23:12)
[2022-07-26] MEDS: MIRALAX *UNIT DOSE* 17GM PACKET PO SCH (07:53)
[2022-07-26] MEDS: ENOXAPARIN 40MG/0.4ML SYRINGE (J1650 PER 10MG) SC SCH (07:53)
[2022-07-26] MEDS: **NOTE PATIENT COMMENT** MISC XX SCH (07:54)
[2022-07-26] MEDS ORDERED: BISACODYL 10 MG SUPP PR ONE (09:35)
[2022-07-26] MEDS ORDERED: MOM 30ML SUSPENSION UDC PO ONE (09:35)
[2022-07-26 14:59] VITALS: BP 172/68
[2022-07-26 16:39] VITALS: BP 144/63
[2022-07-26 19:41] VITALS: BP 154/64
[2022-07-26] MEDS: LIDOCAINE 5% (LIDODERM) PATCH TD SCH (23:12)
[2022-07-26] MEDS: LATANOPROST 0.005% OPHTH SOLN 2.5 ML OU SCH (23:12)
[2022-07-26] MEDS: ATORVASTATIN 20 MG TAB PO SCH (23:12)
[2022-07-26] MEDS: amLODIPine 5 MG TAB PO SCH (23:53)
[2022-07-27 03:48] VITALS: O2SAT 93
[2022-07-27 05:55] VITALS: BP 151/66
[2022-07-27] MEDS: **hydrALAZINE HCL** 25 MG TAB PO SCH ×3 (06:23→21:58)
[2022-07-27] MEDS: PERCOCET 5MG/325MG TAB PO SCH ×4 (06:24→23:37)
[2022-07-27 06:45] LABS: HEMATOCRIT 37.1 % (36.0-47.0); HEMOGLOBIN 11.9 g/dl (12.0-15.5); MEAN CORPUSCULAR HEMOGLOBIN 28.8 pg (27.0-33.0); MEAN CORPUSCULAR HGB CONC 32.1 g/dl (32.0-36.5); MEAN CORPUSCULAR VOLUME 89.8 fl (80.0-96.0); PLATELET COUNT, AUTOMATED 323 10^3/uL (150-450); RED BLOOD COUNT 4.13 10^6/uL (4.00-5.40); WHITE BLOOD COUNT 16.6 10^3/uL (4.0-10.0)
[2022-07-27 07:19] LABS: ATYPICAL LYMPH 1 % (0-5); HYPERSEGMENTED POLYS 2+; LYMPHOCYTES 20 % (16-44); METAMYELOCYTES 4 % (0-0); MONOCYTES 5 % (0-5); MYELOCYTES 1 % (0-0); NEUTROPHILS 67 % (28-66)
[2022-07-27 07:21] LABS: OVALOCYTES 2+
[2022-07-27 07:23] LABS: CRENATED RBC 1+; PLATELET ESTIMATE NORMAL (NORMAL)
[2022-07-27 10:29] VITALS: BP 147/64
[2022-07-27] MEDS: MIRALAX *UNIT DOSE* 17GM PACKET PO SCH (10:30)
[2022-07-27] MEDS: DOCUSATE SODIUM 100MG CAPSULE PO SCH ×2 (10:30→20:47)
[2022-07-27] MEDS: CEFDINIR 300 MG CAP (OMNICEF) PO SCH ×2 (10:30→20:26)
[2022-07-27] MEDS: ASPIRIN 81MG ENTERIC TABLET PO SCH (10:30)
[2022-07-27] MEDS: METOPROLOL TART 12.5 MG PER 1/2 TAB PO SCH ×2 (10:30→20:25)
[2022-07-27] MEDS: QUEtiapine FUMARATE 12.5 MG HALF-TAB PO SCH (10:31)
[2022-07-27] MEDS: MEMANTINE 5MG TABLET (NAMENDA) PO SCH ×2 (10:31→20:26)
[2022-07-27] MEDS: BARICITINIB 2MG TABLET (OLUMIANT) FOR EUA PO SCH (10:31)
[2022-07-27] MEDS: BISACODYL 5 MG TAB PO PRN (10:31)
[2022-07-27] MEDS: OMEPRAZOLE 20MG CAP PO SCH (10:32)
[2022-07-27] MEDS: guaiFENesin ER 600 MG TAB PO SCH ×2 (10:32→20:26)
[2022-07-27] MEDS: **NOTE PATIENT COMMENT** MISC XX SCH (10:32)
[2022-07-27] MEDS: ENOXAPARIN 40MG/0.4ML SYRINGE (J1650 PER 10MG) SC SCH (10:33)
[2022-07-27 13:31] VITALS: BP 162/57
[2022-07-27] MEDS: traMADol 50 MG TAB PO PRN (15:55)
[2022-07-27] MEDS ORDERED: FLEET ENEMA PR PRN (19:00)
[2022-07-27] MEDS: ATORVASTATIN 20 MG TAB PO SCH (20:25)
[2022-07-27] MEDS: LIDOCAINE 5% (LIDODERM) PATCH TD SCH (20:26)
[2022-07-27] MEDS: amLODIPine 5 MG TAB PO SCH (20:26)
[2022-07-27 21:10] VITALS: BP 126/57
[2022-07-27] MEDS: LATANOPROST 0.005% OPHTH SOLN 2.5 ML OU SCH (21:56)
[2022-07-28] MEDS: PERCOCET 5MG/325MG TAB PO SCH ×3 (05:01→18:00)
[2022-07-28] MEDS: **hydrALAZINE HCL** 25 MG TAB PO SCH ×3 (05:02→21:08)
[2022-07-28 05:45] VITALS: BP 132/50
[2022-07-28 06:33] LABS: BASO % 0.2 % (0.0-1.0); HEMOGLOBIN 11.1 g/dl (12.0-15.5); MEAN CORPUSCULAR HEMOGLOBIN 28.6 pg (27.0-33.0); MONO % 8.3 % (2.0-8.0); NEUTROPHILS % 83.1 % (36.0-66.0); RED BLOOD COUNT 3.88 10^6/uL (4.00-5.40)
[2022-07-28 07:04] LABS: BLOOD UREA NITROGEN 28 MG/DL (7-18); CALCIUM LEVEL 8.4 MG/DL (8.8-10.2); CARBON DIOXIDE LEVEL 29 MEQ/L (21-32); CHLORIDE LEVEL 104 MEQ/L (98-107); CREATININE FOR GFR 0.68 MG/DL (0.55-1.30); GLOMERULAR FILTRATION RATE > 60.0 (>32); GLUCOSE, FASTING 95 MG/DL (70-100); MAGNESIUM LEVEL 2.5 MG/DL (1.8-2.4); PHOSPHORUS LEVEL 3.4 MG/DL (2.5-4.9); POTASSIUM SERUM 3.9 MEQ/L (3.5-5.1); SODIUM LEVEL 138 MEQ/L (136-145)
[2022-07-28 08:23] LABS: BASO # 0.1 10^3/uL (0.0-0.2); HEMATOCRIT 34.6 % (36.0-47.0); LYMPH # 1.4 10^3/uL (1.5-5.0); LYMPH % 6.6 % (24.0-44.0); MEAN CORPUSCULAR HGB CONC 32.1 g/dl (32.0-36.5); MEAN CORPUSCULAR VOLUME 89.2 fl (80.0-96.0); NEUTROPHILS # 17.4 10^3/uL (1.5-8.5); PLATELET COUNT, AUTOMATED 313 10^3/uL (150-450)
[2022-07-28] MEDS: MIRALAX *UNIT DOSE* 17GM PACKET PO SCH (08:45)
[2022-07-28] MEDS: ASPIRIN 81MG ENTERIC TABLET PO SCH (08:58)
[2022-07-28] MEDS: BARICITINIB 2MG TABLET (OLUMIANT) FOR EUA PO SCH (08:58)
[2022-07-28] MEDS: MEMANTINE 5MG TABLET (NAMENDA) PO SCH ×2 (08:58→21:08)
[2022-07-28] MEDS: METOPROLOL TART 12.5 MG PER 1/2 TAB PO SCH ×2 (08:59→21:08)
[2022-07-28] MEDS: DOCUSATE SODIUM 100MG CAPSULE PO SCH ×2 (08:59→21:07)
[2022-07-28] MEDS: OMEPRAZOLE 20MG CAP PO SCH (08:59)
[2022-07-28] MEDS: QUEtiapine FUMARATE 12.5 MG HALF-TAB PO SCH (08:59)
[2022-07-28] MEDS: **NOTE PATIENT COMMENT** MISC XX SCH (09:00)
[2022-07-28] MEDS: CEFDINIR 300 MG CAP (OMNICEF) PO SCH ×2 (09:00→21:08)
[2022-07-28] MEDS: ENOXAPARIN 40MG/0.4ML SYRINGE (J1650 PER 10MG) SC SCH (09:00)
[2022-07-28] MEDS: guaiFENesin ER 600 MG TAB PO SCH ×2 (09:00→21:08)
[2022-07-28] MEDS: traMADol 50 MG TAB PO PRN (09:25)
[2022-07-28 09:26] LABS: MONO # 1.7 10^3/uL (0.0-0.8)
[2022-07-28 13:31] LABS: INR 0.96
[2022-07-28 13:32] LABS: FIBRINOGEN 310 MG/DL (268-480); PARTIAL THROMBOPLASTIN TIME 31.9 SECONDS (24.8-34.2)
[2022-07-28 13:53] LABS: ALBUMIN 2.9 GM/DL (3.2-5.2); BILIRUBIN,DIRECT 0.2 MG/DL (0.0-0.2); BILIRUBIN,TOTAL 0.7 MG/DL (0.2-1.0); C REACTIVE PROTEIN QUANTITATIV 2.51 MG/DL (0.00-0.30); D-DIMER QUANT > 4000 ng/ml (<500); TOTAL PROTEIN 5.6 GM/DL (6.4-8.2)
[2022-07-28 14:00] VITALS: BP 133/49
[2022-07-28 21:00] VITALS: BP 144/64
[2022-07-28] MEDS: ATORVASTATIN 20 MG TAB PO SCH (21:08)
[2022-07-28] MEDS: amLODIPine 5 MG TAB PO SCH (21:09)
[2022-07-28] MEDS: LIDOCAINE 5% (LIDODERM) PATCH TD SCH (21:09)
[2022-07-28] MEDS: LATANOPROST 0.005% OPHTH SOLN 2.5 ML OU SCH (21:10)
[2022-07-29] MEDS: **hydrALAZINE HCL** 25 MG TAB PO SCH ×3 (05:02→21:00)
[2022-07-29] MEDS: PERCOCET 5MG/325MG TAB PO SCH ×4 (05:03→18:00)
[2022-07-29 06:35] LABS: BASO % 0.2 % (0.0-1.0); EOS % 0.1 % (0.0-3.0); HEMATOCRIT 33.5 % (36.0-47.0); HEMOGLOBIN 10.8 g/dl (12.0-15.5); LYMPH # 1.5 10^3/uL (1.5-5.0); LYMPH % 9.9 % (24.0-44.0); MEAN CORPUSCULAR HEMOGLOBIN 28.9 pg (27.0-33.0); MEAN CORPUSCULAR HGB CONC 32.2 g/dl (32.0-36.5); MEAN CORPUSCULAR VOLUME 89.6 fl (80.0-96.0); MONO # 1.2 10^3/uL (0.0-0.8); MONO % 7.7 % (2.0-8.0); NEUTROPHILS # 12.3 10^3/uL (1.5-8.5); NEUTROPHILS % 79.4 % (36.0-66.0); PLATELET COUNT, AUTOMATED 290 10^3/uL (150-450); RED BLOOD COUNT 3.74 10^6/uL (4.00-5.40); WHITE BLOOD COUNT 15.4 10^3/uL (4.0-10.0)
[2022-07-29 07:02] LABS: BLOOD UREA NITROGEN 29 MG/DL (7-18); CALCIUM LEVEL 8.5 MG/DL (8.8-10.2); CARBON DIOXIDE LEVEL 29 MEQ/L (21-32); CHLORIDE LEVEL 104 MEQ/L (98-107); CREATININE FOR GFR 0.71 MG/DL (0.55-1.30); GLOMERULAR FILTRATION RATE > 60.0 (>32); GLUCOSE, FASTING 94 MG/DL (70-100); MAGNESIUM LEVEL 2.4 MG/DL (1.8-2.4); POTASSIUM SERUM 4.1 MEQ/L (3.5-5.1); SODIUM LEVEL 138 MEQ/L (136-145)
[2022-07-29] MEDS: guaiFENesin ER 600 MG TAB PO SCH ×2 (08:46→20:56)
[2022-07-29] MEDS: ENOXAPARIN 40MG/0.4ML SYRINGE (J1650 PER 10MG) SC SCH (08:46)
[2022-07-29] MEDS: QUEtiapine FUMARATE 12.5 MG HALF-TAB PO SCH (08:46)
[2022-07-29] MEDS: ASPIRIN 81MG ENTERIC TABLET PO SCH (08:47)
[2022-07-29] MEDS: OMEPRAZOLE 20MG CAP PO SCH (08:47)
[2022-07-29] MEDS: METOPROLOL TART 12.5 MG PER 1/2 TAB PO SCH ×2 (08:47→20:55)
[2022-07-29] MEDS: CEFDINIR 300 MG CAP (OMNICEF) PO SCH ×2 (08:47→20:55)
[2022-07-29] MEDS: DOCUSATE SODIUM 100MG CAPSULE PO SCH ×2 (08:47→20:54)
[2022-07-29] MEDS: BARICITINIB 2MG TABLET (OLUMIANT) FOR EUA PO SCH (08:47)
[2022-07-29] MEDS: MEMANTINE 5MG TABLET (NAMENDA) PO SCH ×2 (08:47→20:55)
[2022-07-29] MEDS: MIRALAX *UNIT DOSE* 17GM PACKET PO SCH (08:48)
[2022-07-29] MEDS: **NOTE PATIENT COMMENT** MISC XX SCH (08:48)
[2022-07-29 14:00] VITALS: BP 123/49
[2022-07-29] MEDS: LATANOPROST 0.005% OPHTH SOLN 2.5 ML OU SCH (19:43)
[2022-07-29 20:00] VITALS: BP 123/52
[2022-07-29] MEDS: ATORVASTATIN 20 MG TAB PO SCH (20:54)
[2022-07-29] MEDS: LIDOCAINE 5% (LIDODERM) PATCH TD SCH (20:54)
[2022-07-29] MEDS: amLODIPine 5 MG TAB PO SCH (20:56)
[2022-07-30] MEDS: traMADol 50 MG TAB PO PRN ×2 (03:28→16:54)
[2022-07-30] MEDS: **hydrALAZINE HCL** 25 MG TAB PO SCH ×2 (05:18→14:09)
[2022-07-30 06:00] VITALS: BP 167/68
[2022-07-30] MEDS: PERCOCET 5MG/325MG TAB PO SCH ×2 (06:00)
[2022-07-30 07:03] LABS: BASO # 0.1 10^3/uL (0.0-0.2); BASO % 0.3 % (0.0-1.0); HEMATOCRIT 32.9 % (36.0-47.0); HEMOGLOBIN 10.8 g/dl (12.0-15.5); LYMPH # 1.1 10^3/uL (1.5-5.0); LYMPH % 7.9 % (24.0-44.0); MEAN CORPUSCULAR HEMOGLOBIN 29.1 pg (27.0-33.0); MEAN CORPUSCULAR HGB CONC 32.8 g/dl (32.0-36.5); MEAN CORPUSCULAR VOLUME 88.7 fl (80.0-96.0); MONO % 6.9 % (2.0-8.0); NEUTROPHILS # 11.4 10^3/uL (1.5-8.5); PLATELET COUNT, AUTOMATED 297 10^3/uL (150-450); RED BLOOD COUNT 3.71 10^6/uL (4.00-5.40); WHITE BLOOD COUNT 14.3 10^3/uL (4.0-10.0)
[2022-07-30 07:32] LABS: BLOOD UREA NITROGEN 26 MG/DL (7-18); CALCIUM LEVEL 8.6 MG/DL (8.8-10.2); CARBON DIOXIDE LEVEL 28 MEQ/L (21-32); CHLORIDE LEVEL 104 MEQ/L (98-107); CREATININE FOR GFR 0.66 MG/DL (0.55-1.30); GLOMERULAR FILTRATION RATE > 60.0 (>32); GLUCOSE, FASTING 94 MG/DL (70-100); MAGNESIUM LEVEL 2.4 MG/DL (1.8-2.4); POTASSIUM SERUM 4.3 MEQ/L (3.5-5.1); SODIUM LEVEL 136 MEQ/L (136-145)
[2022-07-30] MEDS ORDERED: PERCOCET 5MG/325MG TAB PO PRN (08:50)
[2022-07-30] MEDS: **NOTE PATIENT COMMENT** MISC XX SCH (09:00)
[2022-07-30] MEDS: MIRALAX *UNIT DOSE* 17GM PACKET PO SCH (09:05)
[2022-07-30] MEDS: ENOXAPARIN 40MG/0.4ML SYRINGE (J1650 PER 10MG) SC SCH (09:05)
[2022-07-30] MEDS: QUEtiapine FUMARATE 12.5 MG HALF-TAB PO SCH (09:06)
[2022-07-30] MEDS: DOCUSATE SODIUM 100MG CAPSULE PO SCH (09:06)
[2022-07-30] MEDS: OMEPRAZOLE 20MG CAP PO SCH (09:06)
[2022-07-30] MEDS: BARICITINIB 2MG TABLET (OLUMIANT) FOR EUA PO SCH (09:06)
[2022-07-30] MEDS: guaiFENesin ER 600 MG TAB PO SCH (09:06)
[2022-07-30] MEDS: CEFDINIR 300 MG CAP (OMNICEF) PO SCH (09:07)
[2022-07-30] MEDS: MEMANTINE 5MG TABLET (NAMENDA) PO SCH (09:07)
[2022-07-30] MEDS: ASPIRIN 81MG ENTERIC TABLET PO SCH (09:07)
[2022-07-30] MEDS: METOPROLOL TART 12.5 MG PER 1/2 TAB PO SCH (09:10)
[2022-07-30 14:00] VITALS: BP 140/57
[2022-07-30 14:09] VITALS: BP 140/57
== END 2022-07-30 18:00 | DRG 183 ==
LOC: EDSEX 20:52 → M ED 20:52 → EDBD 20:52 → M ED INP 07-20 00:27 → ENRESERV 07-20 14:52 → M MSPAV 07-20 17:26
PROVIDERS: ADMIT Internal Medicine; ATTEND Internal Medicine
PROC: 0PSJXZZ Reposition Left Radius, External Approach (ICD-10-PCS; 2022-07-20)
PROC: XW033E5 Introduction of Remdesivir Anti-infective into Peripheral Vein, Percutaneous Approach, New Technology Group 5 (ICD-10-PCS; principal; 2022-07-20 16:00)
PROC: 3E0333Z Introduction of Anti-inflammatory into Peripheral Vein, Percutaneous Approach (ICD-10-PCS; 2022-07-21)
PROC: 05HB33Z Insertion of Infusion Device into Right Basilic Vein, Percutaneous Approach (ICD-10-PCS; 2022-07-21)
DX: S22.42XA Multiple fractures of ribs, left side, initial encounter for closed fracture (principal); U07.1 COVID-19; J12.82 Pneumonia due to coronavirus disease 2019; J98.11 Atelectasis; E87.1 Hypo-osmolality and hyponatremia; S22.089A Unspecified fracture of T11-T12 vertebra, initial encounter for closed fracture; S22.020A Wedge compression fracture of second thoracic vertebra, initial encounter for closed fracture; S22.030A Wedge compression fracture of third thoracic vertebra, initial encounter for closed fracture; N39.0 Urinary tract infection, site not specified; F03.90 Unspecified dementia, unspecified severity, without behavioral disturbance, psychotic disturbance, mood disturbance, and anxiety; I10 Essential (primary) hypertension; E78.5 Hyperlipidemia, unspecified; K21.9 Gastro-esophageal reflux disease without esophagitis; H40.9 Unspecified glaucoma; M81.0 Age-related osteoporosis without current pathological fracture; S00.03XA Contusion of scalp, initial encounter; W10.8XXA Fall (on) (from) other stairs and steps, initial encounter; Y92.018 Other place in single-family (private) house as the place of occurrence of the external cause; Y93.9 Activity, unspecified; Y99.8 Other external cause status; R41.0 Disorientation, unspecified; B96.20 Unspecified Escherichia coli [E. coli] as the cause of diseases classified elsewhere; R35.0 Frequency of micturition; I51.7 Cardiomegaly; R29.6 Repeated falls; R09.02 Hypoxemia; E87.6 Hypokalemia; S62.012A Displaced fracture of distal pole of navicular [scaphoid] bone of left wrist, initial encounter for closed fracture; E83.42 Hypomagnesemia; E83.39 Other disorders of phosphorus metabolism; Z90.49 Acquired absence of other specified parts of digestive tract; Z79.899 Other long term (current) drug therapy; Z88.2 Allergy status to sulfonamides

== ENCOUNTER 2022-07-30 16:58 | Inpatient (IN) | payer MEDICARE, MEDICAID ==
[~2022-07-30] VITALS: Ht 162.6 cm; Wt 55.9 kg
[~2022-07-30 16:58] MED LIST: ATOR40TA75 PO; LISI20TA33 PO; MEMA10TA19 PO; OMEP40CA5 PO; QUET50TA4 PO; XALA0.007 OU
[2022-07-30] MEDS ORDERED: PERCOCET 5MG/325MG TAB PO PRN (17:55)
[2022-07-30] MEDS ORDERED: ALBUTEROL 90 MCG/ACT 8GM HFA INHALER INH PRN (17:55)
[2022-07-30] MEDS ORDERED: NALOXONE INJ 0.4MG/1ML VIAL (J2310 PER 1MG) IV PRN (17:55)
[2022-07-30] MEDS ORDERED: DOCUSATE SODIUM 100MG CAPSULE PO PRN (17:55)
[2022-07-30 18:00] VITALS: BP 132/61
[2022-07-30 20:42] VITALS: BP 144/70
[2022-07-30] MEDS: ACETAMINOPHEN TAB 650MG DOSE (2X325MG) PO PRN (20:45)
[2022-07-30] MEDS: ATORVASTATIN 20 MG TAB PO SCH (20:45)
[2022-07-30] MEDS: guaiFENesin ER 600 MG TAB PO SCH (20:45)
[2022-07-30] MEDS: **hydrALAZINE HCL** 25 MG TAB PO SCH (20:46)
[2022-07-30] MEDS: MEMANTINE 5MG TABLET (NAMENDA) PO SCH (20:46)
[2022-07-30] MEDS: FAMOTIDINE 20 MG TAB PO SCH (20:46)
[2022-07-30] MEDS ORDERED: LIDOCAINE 5% (LIDODERM) PATCH TD ONE (21:00)
[2022-07-30] MEDS ORDERED: **hydrALAZINE HCL** 25 MG TAB PO SCH (21:00)
[2022-07-30] MEDS: QUEtiapine FUMARATE 12.5 MG HALF-TAB PO SCH (22:40)
[2022-07-30] MEDS: LATANOPROST 0.005% OPHTH SOLN 2.5 ML OU SCH (22:40)
[2022-07-30] MEDS: METOPROLOL SUCC *XL* 12.5MG PER 1/2 TAB (TopROL *XL*) PO SCH (22:44)
[2022-07-31] MEDS: ACETAMINOPHEN TAB 650MG DOSE (2X325MG) PO PRN ×2 (02:39→09:44)
[2022-07-31 05:04] LABS: APPEARANCE, URINE MANUAL CLEAR (CLEAR); COLOR, URINE MANUAL YELLOW (YELLOW)
[2022-07-31 05:05] LABS: BILIRUBIN, URINE MANUAL NEGATIVE (NEGATIVE); BLOOD URINE MANUAL NEGATIVE (NEGATIVE); GLUCOSE, URINE (UA) MANUAL NEGATIVE (NEGATIVE); KETONE, URINE MANUAL NEGATIVE (NEGATIVE); NITRITE, URINE MANUAL NEGATIVE (NEGATIVE); PROTEIN, URINE MANUAL NEGATIVE (NEGATIVE); SPECIFIC GRAVITY,URINE MANUAL 1.015 (1.002-1.035); UROBILINOGEN, URINE MANUAL NORMAL (NORMAL)
[2022-07-31 05:06] LABS: LEUKOCYTE ESTERASE, URINE MAN NEGATIVE (NEGATIVE)
[2022-07-31] MEDS: traMADol 50 MG TAB PO PRN ×2 (05:41→20:11)
[2022-07-31 06:00] VITALS: BP 138/70
[2022-07-31 07:40] LABS: BASO # 0.1 10^3/uL (0.0-0.2); BASO % 0.4 % (0.0-1.0); EOS % 0.1 % (0.0-3.0); HEMOGLOBIN 10.7 g/dl (12.0-15.5); LYMPH # 1.5 10^3/uL (1.5-5.0); LYMPH % 9.7 % (24.0-44.0); MEAN CORPUSCULAR HEMOGLOBIN 29.1 pg (27.0-33.0); MEAN CORPUSCULAR HGB CONC 32.4 g/dl (32.0-36.5); MEAN CORPUSCULAR VOLUME 89.7 fl (80.0-96.0); MONO # 1.2 10^3/uL (0.0-0.8); NEUTROPHILS # 12.1 10^3/uL (1.5-8.5); NEUTROPHILS % 78.1 % (36.0-66.0); PLATELET COUNT, AUTOMATED 301 10^3/uL (150-450); RED BLOOD COUNT 3.68 10^6/uL (4.00-5.40); WHITE BLOOD COUNT 15.5 10^3/uL (4.0-10.0)
[2022-07-31] MEDS: METOPROLOL SUCC *XL* 12.5MG PER 1/2 TAB (TopROL *XL*) PO SCH ×2 (09:41→20:22)
[2022-07-31] MEDS: MULTIVITAMINS/MINERALS THERAP 1 TAB PO SCH (09:41)
[2022-07-31] MEDS: **hydrALAZINE HCL** 25 MG TAB PO SCH (09:41)
[2022-07-31] MEDS: ASPIRIN 81MG ENTERIC TABLET PO SCH (09:41)
[2022-07-31] MEDS: OYSTER SHELL CALCIUM 500 MG TAB PO SCH (09:41)
[2022-07-31] MEDS: MEMANTINE 5MG TABLET (NAMENDA) PO SCH ×2 (09:41→20:23)
[2022-07-31] MEDS: guaiFENesin ER 600 MG TAB PO SCH ×2 (09:41→20:23)
[2022-07-31] MEDS: ENOXAPARIN 40MG/0.4ML SYRINGE (J1650 PER 10MG) SC SCH (09:42)
[2022-07-31] MEDS: MIRALAX *UNIT DOSE* 17GM PACKET PO SCH (09:44)
[2022-07-31 14:00] VITALS: BP 135/72
[2022-07-31 20:00] VITALS: BP 131/59
[2022-07-31] MEDS: LATANOPROST 0.005% OPHTH SOLN 2.5 ML OU SCH (20:11)
[2022-07-31] MEDS: QUEtiapine FUMARATE 12.5 MG HALF-TAB PO SCH (20:22)
[2022-07-31] MEDS: ATORVASTATIN 20 MG TAB PO SCH (20:23)
[2022-07-31] MEDS: FAMOTIDINE 20 MG TAB PO SCH (20:23)
[2022-08-01] VITALS: BP 172/76
[2022-08-01] MEDS ORDERED: **hydrALAZINE HCL** 25 MG TAB PO ONE (00:55)
[2022-08-01 03:04] VITALS: BP 139/64
[2022-08-01 04:00] VITALS: BP 136/67
[2022-08-01] MEDS: MULTIVITAMINS/MINERALS THERAP 1 TAB PO SCH (09:00)
[2022-08-01] MEDS: OYSTER SHELL CALCIUM 500 MG TAB PO SCH (09:00)
[2022-08-01] MEDS: guaiFENesin ER 600 MG TAB PO SCH ×2 (09:00→20:04)
[2022-08-01] MEDS: MEMANTINE 5MG TABLET (NAMENDA) PO SCH ×2 (09:37→20:04)
[2022-08-01] MEDS: METOPROLOL SUCC *XL* 12.5MG PER 1/2 TAB (TopROL *XL*) PO SCH ×2 (09:37→20:03)
[2022-08-01] MEDS: ASPIRIN 81MG ENTERIC TABLET PO SCH (09:37)
[2022-08-01] MEDS: ENOXAPARIN 40MG/0.4ML SYRINGE (J1650 PER 10MG) SC SCH (09:37)
[2022-08-01] MEDS: MIRALAX *UNIT DOSE* 17GM PACKET PO SCH (09:42)
[2022-08-01 10:00] VITALS: BP 122/62
[2022-08-01 14:00] VITALS: BP 120/64
[2022-08-01] MEDS: traMADol 50 MG TAB PO PRN (16:16)
[2022-08-01 19:58] VITALS: BP 112/57
[2022-08-01] MEDS: FAMOTIDINE 20 MG TAB PO SCH (20:02)
[2022-08-01] MEDS: ATORVASTATIN 20 MG TAB PO SCH (20:02)
[2022-08-01] MEDS: QUEtiapine FUMARATE 12.5 MG HALF-TAB PO SCH (20:03)
[2022-08-01] MEDS: ACETAMINOPHEN TAB 650MG DOSE (2X325MG) PO PRN (20:03)
[2022-08-01] MEDS: LATANOPROST 0.005% OPHTH SOLN 2.5 ML OU SCH (20:04)
[2022-08-02] MEDS: BENZOCAINE 10% 9GM TUBE (ANBESOL) MT PRN (05:46)
[2022-08-02 06:00] VITALS: BP 142/68
[2022-08-02 07:37] LABS: HEMATOCRIT 35.5 % (36.0-47.0); HEMOGLOBIN 11.3 g/dl (12.0-15.5); MEAN CORPUSCULAR HEMOGLOBIN 28.8 pg (27.0-33.0); MEAN CORPUSCULAR HGB CONC 31.8 g/dl (32.0-36.5); MEAN CORPUSCULAR VOLUME 90.3 fl (80.0-96.0); PLATELET COUNT, AUTOMATED 351 10^3/uL (150-450); RED BLOOD COUNT 3.93 10^6/uL (4.00-5.40); WHITE BLOOD COUNT 21.4 10^3/uL (4.0-10.0)
[2022-08-02] MEDS: ENOXAPARIN 40MG/0.4ML SYRINGE (J1650 PER 10MG) SC SCH (08:54)
[2022-08-02] MEDS: guaiFENesin ER 600 MG TAB PO SCH ×2 (09:00→20:39)
[2022-08-02] MEDS: OYSTER SHELL CALCIUM 500 MG TAB PO SCH (09:00)
[2022-08-02] MEDS: MULTIVITAMINS/MINERALS THERAP 1 TAB PO SCH (09:00)
[2022-08-02] MEDS: MIRALAX *UNIT DOSE* 17GM PACKET PO SCH (09:00)
[2022-08-02] MEDS: MEMANTINE 5MG TABLET (NAMENDA) PO SCH ×2 (10:48→20:38)
[2022-08-02] MEDS: ASPIRIN 81MG ENTERIC TABLET PO SCH (10:48)
[2022-08-02] MEDS: METOPROLOL SUCC *XL* 12.5MG PER 1/2 TAB (TopROL *XL*) PO SCH ×2 (10:48→20:38)
[2022-08-02] MEDS: ACETAMINOPHEN TAB 650MG DOSE (2X325MG) PO PRN ×2 (11:34→20:38)
[2022-08-02 14:00] VITALS: BP 146/72
[2022-08-02 20:00] VITALS: BP 142/72
[2022-08-02] MEDS: ATORVASTATIN 20 MG TAB PO SCH (20:37)
[2022-08-02] MEDS: FAMOTIDINE 20 MG TAB PO SCH (20:37)
[2022-08-02] MEDS: QUEtiapine FUMARATE 12.5 MG HALF-TAB PO SCH (20:39)
[2022-08-02] MEDS: LATANOPROST 0.005% OPHTH SOLN 2.5 ML OU SCH (20:39)
[2022-08-03] MEDS: traMADol 50 MG TAB PO PRN (02:39)
[2022-08-03 06:00] VITALS: BP 140/77
[2022-08-03 06:41] LABS: HEMOGLOBIN 10.2 g/dl (12.0-15.5); MEAN CORPUSCULAR HEMOGLOBIN 29.1 pg (27.0-33.0); MEAN CORPUSCULAR HGB CONC 31.9 g/dl (32.0-36.5); MEAN CORPUSCULAR VOLUME 91.4 fl (80.0-96.0); PLATELET COUNT, AUTOMATED 305 10^3/uL (150-450); WHITE BLOOD COUNT 17.4 10^3/uL (4.0-10.0)
[2022-08-03] MEDS: OYSTER SHELL CALCIUM 500 MG TAB PO SCH (09:18)
[2022-08-03] MEDS: ASPIRIN 81MG ENTERIC TABLET PO SCH (09:18)
[2022-08-03] MEDS: guaiFENesin ER 600 MG TAB PO SCH ×2 (09:18→20:59)
[2022-08-03] MEDS: MEMANTINE 5MG TABLET (NAMENDA) PO SCH ×2 (09:18→20:59)
[2022-08-03] MEDS: MULTIVITAMINS/MINERALS THERAP 1 TAB PO SCH (09:19)
[2022-08-03] MEDS: METOPROLOL SUCC *XL* 12.5MG PER 1/2 TAB (TopROL *XL*) PO SCH ×2 (09:20→20:59)
[2022-08-03] MEDS: ENOXAPARIN 40MG/0.4ML SYRINGE (J1650 PER 10MG) SC SCH (09:21)
[2022-08-03] MEDS: MIRALAX *UNIT DOSE* 17GM PACKET PO SCH (09:21)
[2022-08-03 10:34] LABS: BLOOD UREA NITROGEN 21 MG/DL (7-18); CALCIUM LEVEL 8.5 MG/DL (8.8-10.2); CARBON DIOXIDE LEVEL 28 MEQ/L (21-32); CHLORIDE LEVEL 105 MEQ/L (98-107); CREATININE FOR GFR 0.73 MG/DL (0.55-1.30); GLOMERULAR FILTRATION RATE > 60.0 (>32); GLUCOSE, FASTING 112 MG/DL (70-100); POTASSIUM SERUM 3.9 MEQ/L (3.5-5.1); SODIUM LEVEL 138 MEQ/L (136-145)
[2022-08-03] MEDS: ACETAMINOPHEN TAB 650MG DOSE (2X325MG) PO PRN (11:57)
[2022-08-03 14:00] VITALS: BP 130/66
[2022-08-03 20:00] VITALS: BP 131/61
[2022-08-03] MEDS: DICLOFENAC EPOLAMINE 1.3 % PATCH TOP SCH (20:00)
[2022-08-03] MEDS: FAMOTIDINE 20 MG TAB PO SCH (20:59)
[2022-08-03] MEDS: ATORVASTATIN 20 MG TAB PO SCH (20:59)
[2022-08-03] MEDS: QUEtiapine FUMARATE 12.5 MG HALF-TAB PO SCH (20:59)
[2022-08-03] MEDS: LATANOPROST 0.005% OPHTH SOLN 2.5 ML OU SCH (21:00)
[2022-08-04] MEDS: ACETAMINOPHEN TAB 650MG DOSE (2X325MG) PO PRN ×2 (02:14→06:44)
[2022-08-04 06:00] VITALS: BP 117/57
[2022-08-04 06:33] LABS: BASO % 0.2 % (0.0-1.0); EOS # 0.1 10^3/uL (0.0-0.5); EOS % 0.8 % (0.0-3.0); HEMATOCRIT 29.5 % (36.0-47.0); HEMOGLOBIN 9.6 g/dl (12.0-15.5); LYMPH # 1.4 10^3/uL (1.5-5.0); LYMPH % 10.1 % (24.0-44.0); MEAN CORPUSCULAR HEMOGLOBIN 29.9 pg (27.0-33.0); MEAN CORPUSCULAR HGB CONC 32.5 g/dl (32.0-36.5); MEAN CORPUSCULAR VOLUME 91.9 fl (80.0-96.0); MONO # 1.1 10^3/uL (0.0-0.8); MONO % 8.2 % (2.0-8.0); NEUTROPHILS % 79.2 % (36.0-66.0); PLATELET COUNT, AUTOMATED 288 10^3/uL (150-450); RED BLOOD COUNT 3.21 10^6/uL (4.00-5.40); WHITE BLOOD COUNT 13.9 10^3/uL (4.0-10.0)
[2022-08-04] MEDS: DICLOFENAC EPOLAMINE 1.3 % PATCH TOP SCH ×2 (06:44→17:37)
[2022-08-04] MEDS: MEMANTINE 5MG TABLET (NAMENDA) PO SCH ×2 (08:32→20:54)
[2022-08-04] MEDS: guaiFENesin ER 600 MG TAB PO SCH ×2 (08:32→20:54)
[2022-08-04] MEDS: OYSTER SHELL CALCIUM 500 MG TAB PO SCH (08:32)
[2022-08-04] MEDS: METOPROLOL SUCC *XL* 12.5MG PER 1/2 TAB (TopROL *XL*) PO SCH ×2 (08:32→20:53)
[2022-08-04] MEDS: ASPIRIN 81MG ENTERIC TABLET PO SCH (08:32)
[2022-08-04] MEDS: traMADol 50 MG TAB PO PRN ×2 (08:33→20:54)
[2022-08-04] MEDS: ENOXAPARIN 40MG/0.4ML SYRINGE (J1650 PER 10MG) SC SCH (08:33)
[2022-08-04] MEDS: MIRALAX *UNIT DOSE* 17GM PACKET PO SCH (08:33)
[2022-08-04] MEDS: MULTIVITAMINS/MINERALS THERAP 1 TAB PO SCH (08:33)
[2022-08-04] MEDS: LevoFLOXacin 250 MG TABLET PO SCH (11:55)
[2022-08-04] MEDS: LACTOBACILLUS ACIDOPHILUS CAP (BACID) PO SCH ×2 (11:55→17:37)
[2022-08-04] MEDS ORDERED: FOSFOMYCIN TROMETHAMINE 3 GM POWDER PACKET (MONUROL) PO ONE (12:00)
[2022-08-04 14:00] VITALS: BP 124/59
[2022-08-04] MEDS: DULoxetine 20 MG CAP (CYMBALTA) PO SCH (17:37)
[2022-08-04] MEDS: LIDOCAINE 5% (LIDODERM) PATCH TD SCH (17:37)
[2022-08-04 20:00] VITALS: BP 146/86
[2022-08-04] MEDS: QUEtiapine FUMARATE 12.5 MG HALF-TAB PO SCH (20:52)
[2022-08-04] MEDS: ATORVASTATIN 20 MG TAB PO SCH (20:52)
[2022-08-04] MEDS: FAMOTIDINE 20 MG TAB PO SCH (20:53)
[2022-08-04] MEDS: LATANOPROST 0.005% OPHTH SOLN 2.5 ML OU SCH (20:54)
[2022-08-05] MEDS: ACETAMINOPHEN TAB 650MG DOSE (2X325MG) PO PRN (01:41)
[2022-08-05 05:25] VITALS: BP 102/53
[2022-08-05] MEDS: LevoFLOXacin 250 MG TABLET PO SCH (05:28)
[2022-08-05] MEDS: DICLOFENAC EPOLAMINE 1.3 % PATCH TOP SCH ×2 (05:28→18:26)
[2022-08-05 08:00] LABS: EOS # 0.1 10^3/uL (0.0-0.5); EOS % 1.2 % (0.0-3.0); HEMOGLOBIN 9.4 g/dl (12.0-15.5); MEAN CORPUSCULAR HEMOGLOBIN 29.3 pg (27.0-33.0); MEAN CORPUSCULAR HGB CONC 31.3 g/dl (32.0-36.5); MEAN CORPUSCULAR VOLUME 93.5 fl (80.0-96.0); MONO # 0.7 10^3/uL (0.0-0.8); MONO % 7.4 % (2.0-8.0); NEUTROPHILS # 7.6 10^3/uL (1.5-8.5); NEUTROPHILS % 80.2 % (36.0-66.0); PLATELET COUNT, AUTOMATED 291 10^3/uL (150-450); RED BLOOD COUNT 3.21 10^6/uL (4.00-5.40); WHITE BLOOD COUNT 9.5 10^3/uL (4.0-10.0)
[2022-08-05] MEDS: ASPIRIN 81MG ENTERIC TABLET PO SCH (08:50)
[2022-08-05] MEDS: LACTOBACILLUS ACIDOPHILUS CAP (BACID) PO SCH ×2 (08:50→18:26)
[2022-08-05] MEDS: DULoxetine 20 MG CAP (CYMBALTA) PO SCH (08:50)
[2022-08-05] MEDS: OYSTER SHELL CALCIUM 500 MG TAB PO SCH (08:50)
[2022-08-05] MEDS: guaiFENesin ER 600 MG TAB PO SCH ×2 (08:50→20:12)
[2022-08-05] MEDS: MEMANTINE 5MG TABLET (NAMENDA) PO SCH ×2 (08:51→20:11)
[2022-08-05] MEDS: MULTIVITAMINS/MINERALS THERAP 1 TAB PO SCH (08:51)
[2022-08-05 08:53] LABS: BLOOD UREA NITROGEN 16 MG/DL (7-18); CALCIUM LEVEL 8.8 MG/DL (8.8-10.2); CARBON DIOXIDE LEVEL 28 MEQ/L (21-32); CHLORIDE LEVEL 103 MEQ/L (98-107); CREATININE FOR GFR 0.62 MG/DL (0.55-1.30); GLOMERULAR FILTRATION RATE > 60.0 (>32); GLUCOSE, FASTING 98 MG/DL (70-100); POTASSIUM SERUM 3.7 MEQ/L (3.5-5.1); SODIUM LEVEL 138 MEQ/L (136-145)
[2022-08-05] MEDS: METOPROLOL SUCC *XL* 12.5MG PER 1/2 TAB (TopROL *XL*) PO SCH ×2 (08:53→20:11)
[2022-08-05] MEDS: MIRALAX *UNIT DOSE* 17GM PACKET PO SCH (08:53)
[2022-08-05] MEDS: ENOXAPARIN 40MG/0.4ML SYRINGE (J1650 PER 10MG) SC SCH (08:53)
[2022-08-05] MEDS: traMADol 50 MG TAB PO PRN (11:01)
[2022-08-05 14:00] VITALS: BP 110/60
[2022-08-05] MEDS: LIDOCAINE 5% (LIDODERM) PATCH TD SCH (18:26)
[2022-08-05 20:00] VITALS: BP 129/60
[2022-08-05] MEDS: LATANOPROST 0.005% OPHTH SOLN 2.5 ML OU SCH (20:12)
[2022-08-05] MEDS: ATORVASTATIN 20 MG TAB PO SCH (20:12)
[2022-08-05] MEDS: QUEtiapine FUMARATE 12.5 MG HALF-TAB PO SCH (20:12)
[2022-08-05] MEDS: BENZOCAINE 10% 9GM TUBE (ANBESOL) MT PRN (20:12)
[2022-08-05] MEDS: FAMOTIDINE 20 MG TAB PO SCH (20:12)
[2022-08-06] MEDS: LevoFLOXacin 250 MG TABLET PO SCH (05:10)
[2022-08-06] MEDS: DICLOFENAC EPOLAMINE 1.3 % PATCH TOP SCH ×2 (05:10→17:01)
[2022-08-06 05:26] VITALS: BP 118/68
[2022-08-06 07:45] LABS: BASO % 0.1 % (0.0-1.0); EOS # 0.1 10^3/uL (0.0-0.5); EOS % 0.9 % (0.0-3.0); HEMATOCRIT 29.7 % (36.0-47.0); HEMOGLOBIN 9.6 g/dl (12.0-15.5); LYMPH # 0.8 10^3/uL (1.5-5.0); LYMPH % 7.5 % (24.0-44.0); MEAN CORPUSCULAR HEMOGLOBIN 29.7 pg (27.0-33.0); MEAN CORPUSCULAR HGB CONC 32.3 g/dl (32.0-36.5); MONO # 0.7 10^3/uL (0.0-0.8); MONO % 6.6 % (2.0-8.0); NEUTROPHILS # 8.7 10^3/uL (1.5-8.5); NEUTROPHILS % 83.3 % (36.0-66.0); PLATELET COUNT, AUTOMATED 283 10^3/uL (150-450); RED BLOOD COUNT 3.23 10^6/uL (4.00-5.40); WHITE BLOOD COUNT 10.5 10^3/uL (4.0-10.0)
[2022-08-06 08:17] LABS: BLOOD UREA NITROGEN 13 MG/DL (7-18); CALCIUM LEVEL 8.5 MG/DL (8.8-10.2); CARBON DIOXIDE LEVEL 26 MEQ/L (21-32); CHLORIDE LEVEL 102 MEQ/L (98-107); CREATININE FOR GFR 0.56 MG/DL (0.55-1.30); GLOMERULAR FILTRATION RATE > 60.0 (>32); GLUCOSE, FASTING 91 MG/DL (70-100); POTASSIUM SERUM 3.5 MEQ/L (3.5-5.1); SODIUM LEVEL 137 MEQ/L (136-145)
[2022-08-06] MEDS: MEMANTINE 5MG TABLET (NAMENDA) PO SCH ×2 (08:50→21:00)
[2022-08-06] MEDS: LACTOBACILLUS ACIDOPHILUS CAP (BACID) PO SCH ×2 (08:50→17:01)
[2022-08-06] MEDS: guaiFENesin ER 600 MG TAB PO SCH ×2 (08:50→21:00)
[2022-08-06] MEDS: OYSTER SHELL CALCIUM 500 MG TAB PO SCH (08:50)
[2022-08-06] MEDS: DULoxetine 20 MG CAP (CYMBALTA) PO SCH (08:50)
[2022-08-06] MEDS: MIRALAX *UNIT DOSE* 17GM PACKET PO SCH (08:51)
[2022-08-06] MEDS: METOPROLOL SUCC *XL* 12.5MG PER 1/2 TAB (TopROL *XL*) PO SCH ×2 (08:51→21:00)
[2022-08-06] MEDS: ENOXAPARIN 40MG/0.4ML SYRINGE (J1650 PER 10MG) SC SCH (08:51)
[2022-08-06] MEDS: MULTIVITAMINS/MINERALS THERAP 1 TAB PO SCH (08:51)
[2022-08-06] MEDS: ACETAMINOPHEN TAB 650MG DOSE (2X325MG) PO PRN (08:51)
[2022-08-06] MEDS: ASPIRIN 81MG ENTERIC TABLET PO SCH (08:51)
[2022-08-06 14:00] VITALS: BP 121/58
[2022-08-06] MEDS: traMADol 50 MG TAB PO PRN (16:18)
[2022-08-06] MEDS: LIDOCAINE 5% (LIDODERM) PATCH TD SCH (17:01)
[2022-08-06 20:00] VITALS: BP 123/60
[2022-08-06] MEDS: ATORVASTATIN 20 MG TAB PO SCH (21:00)
[2022-08-06] MEDS: FAMOTIDINE 20 MG TAB PO SCH (21:00)
[2022-08-06] MEDS: QUEtiapine FUMARATE 12.5 MG HALF-TAB PO SCH (21:00)
[2022-08-06] MEDS: LATANOPROST 0.005% OPHTH SOLN 2.5 ML OU SCH (21:00)
[2022-08-07] MEDS: DICLOFENAC EPOLAMINE 1.3 % PATCH TOP SCH ×2 (05:05→21:13)
[2022-08-07] MEDS: ACETAMINOPHEN TAB 650MG DOSE (2X325MG) PO PRN ×2 (05:11→17:17)
[2022-08-07 06:00] VITALS: BP 150/65
[2022-08-07 06:37] LABS: EOS # 0.1 10^3/uL (0.0-0.5); HEMOGLOBIN 9.5 g/dl (12.0-15.5); LYMPH # 1.1 10^3/uL (1.5-5.0); LYMPH % 11.8 % (24.0-44.0); MEAN CORPUSCULAR HGB CONC 31.7 g/dl (32.0-36.5); MEAN CORPUSCULAR VOLUME 91.5 fl (80.0-96.0); MONO # 0.7 10^3/uL (0.0-0.8); MONO % 7.5 % (2.0-8.0); NEUTROPHILS # 7.6 10^3/uL (1.5-8.5); NEUTROPHILS % 78.8 % (36.0-66.0); PLATELET COUNT, AUTOMATED 280 10^3/uL (150-450); RED BLOOD COUNT 3.28 10^6/uL (4.00-5.40); WHITE BLOOD COUNT 9.7 10^3/uL (4.0-10.0)
[2022-08-07 07:13] LABS: BLOOD UREA NITROGEN 19 MG/DL (7-18); CALCIUM LEVEL 8.6 MG/DL (8.8-10.2); CARBON DIOXIDE LEVEL 27 MEQ/L (21-32); CHLORIDE LEVEL 105 MEQ/L (98-107); CREATININE FOR GFR 0.72 MG/DL (0.55-1.30); GLOMERULAR FILTRATION RATE > 60.0 (>32); GLUCOSE, FASTING 122 MG/DL (70-100); POTASSIUM SERUM 3.3 MEQ/L (3.5-5.1); SODIUM LEVEL 140 MEQ/L (136-145)
[2022-08-07] MEDS: LACTOBACILLUS ACIDOPHILUS CAP (BACID) PO SCH ×2 (08:00→17:22)
[2022-08-07] MEDS: OYSTER SHELL CALCIUM 500 MG TAB PO SCH (09:00)
[2022-08-07] MEDS: MIRALAX *UNIT DOSE* 17GM PACKET PO SCH (09:00)
[2022-08-07] MEDS: MULTIVITAMINS/MINERALS THERAP 1 TAB PO SCH (09:00)
[2022-08-07] MEDS ORDERED: POTASSIUM CHLORIDE 10MEQ SR TABLET PO ONE (09:15)
[2022-08-07] MEDS: traMADol 50 MG TAB PO PRN (09:53)
[2022-08-07] MEDS: MEMANTINE 5MG TABLET (NAMENDA) PO SCH ×2 (09:54→21:12)
[2022-08-07] MEDS: METOPROLOL SUCC *XL* 12.5MG PER 1/2 TAB (TopROL *XL*) PO SCH ×2 (09:54→21:11)
[2022-08-07] MEDS: ASPIRIN 81MG ENTERIC TABLET PO SCH (09:55)
[2022-08-07] MEDS: guaiFENesin ER 600 MG TAB PO SCH ×2 (09:55→21:11)
[2022-08-07] MEDS: DULoxetine 20 MG CAP (CYMBALTA) PO SCH (09:55)
[2022-08-07] MEDS: ENOXAPARIN 40MG/0.4ML SYRINGE (J1650 PER 10MG) SC SCH (09:56)
[2022-08-07 09:57] LABS: MAGNESIUM LEVEL 2.1 MG/DL (1.8-2.4)
[2022-08-07 14:00] VITALS: BP 138/63
[2022-08-07 19:27] VITALS: BP 132/61
[2022-08-07] MEDS: FAMOTIDINE 20 MG TAB PO SCH (21:11)
[2022-08-07] MEDS: LOPERAMIDE 2 MG CAPLET PO SCH (21:11)
[2022-08-07] MEDS: QUEtiapine FUMARATE 12.5 MG HALF-TAB PO SCH (21:11)
[2022-08-07] MEDS: ATORVASTATIN 20 MG TAB PO SCH (21:12)
[2022-08-07] MEDS: LIDOCAINE 5% (LIDODERM) PATCH TD SCH (21:12)
[2022-08-07] MEDS: LATANOPROST 0.005% OPHTH SOLN 2.5 ML OU SCH (21:13)
[2022-08-08 05:30] VITALS: BP 129/60
[2022-08-08] MEDS: DICLOFENAC EPOLAMINE 1.3 % PATCH TOP SCH ×2 (05:34→17:05)
[2022-08-08 07:47] LABS: BLOOD UREA NITROGEN 12 MG/DL (7-18); CALCIUM LEVEL 8.7 MG/DL (8.8-10.2); CARBON DIOXIDE LEVEL 28 MEQ/L (21-32); CHLORIDE LEVEL 107 MEQ/L (98-107); CREATININE FOR GFR 0.53 MG/DL (0.55-1.30); GLOMERULAR FILTRATION RATE > 60.0 (>32); GLUCOSE, FASTING 97 MG/DL (70-100); POTASSIUM SERUM 3.9 MEQ/L (3.5-5.1); SODIUM LEVEL 139 MEQ/L (136-145)
[2022-08-08] MEDS: ASPIRIN 81MG ENTERIC TABLET PO SCH (08:34)
[2022-08-08] MEDS: DULoxetine 20 MG CAP (CYMBALTA) PO SCH (08:34)
[2022-08-08] MEDS: MEMANTINE 5MG TABLET (NAMENDA) PO SCH ×2 (08:34→20:41)
[2022-08-08] MEDS: LACTOBACILLUS ACIDOPHILUS CAP (BACID) PO SCH ×2 (08:34→17:05)
[2022-08-08] MEDS: guaiFENesin ER 600 MG TAB PO SCH ×2 (08:34→20:42)
[2022-08-08] MEDS: OYSTER SHELL CALCIUM 500 MG TAB PO SCH (08:34)
[2022-08-08] MEDS: MULTIVITAMINS/MINERALS THERAP 1 TAB PO SCH (08:34)
[2022-08-08] MEDS: METOPROLOL SUCC *XL* 12.5MG PER 1/2 TAB (TopROL *XL*) PO SCH ×2 (08:35→20:41)
[2022-08-08] MEDS: ENOXAPARIN 40MG/0.4ML SYRINGE (J1650 PER 10MG) SC SCH (08:35)
[2022-08-08] MEDS: MIRALAX *UNIT DOSE* 17GM PACKET PO SCH (08:35)
[2022-08-08] MEDS: LOPERAMIDE 2 MG CAPLET PO SCH ×2 (08:36→19:16)
[2022-08-08 14:00] VITALS: BP 124/58
[2022-08-08] MEDS: ACETAMINOPHEN TAB 650MG DOSE (2X325MG) PO PRN ×2 (16:28→22:49)
[2022-08-08] MEDS: LIDOCAINE 5% (LIDODERM) PATCH TD SCH (17:05)
[2022-08-08 20:00] VITALS: BP 126/60
[2022-08-08] MEDS: ATORVASTATIN 20 MG TAB PO SCH (20:41)
[2022-08-08] MEDS: QUEtiapine FUMARATE 12.5 MG HALF-TAB PO SCH (20:41)
[2022-08-08] MEDS: FAMOTIDINE 20 MG TAB PO SCH (20:41)
[2022-08-08] MEDS: LATANOPROST 0.005% OPHTH SOLN 2.5 ML OU SCH (20:42)
[2022-08-09] MEDS: ACETAMINOPHEN TAB 650MG DOSE (2X325MG) PO PRN ×2 (02:46→20:36)
[2022-08-09] MEDS: traMADol 50 MG TAB PO PRN (04:03)
[2022-08-09 06:00] VITALS: BP 149/68
[2022-08-09] MEDS: DICLOFENAC EPOLAMINE 1.3 % PATCH TOP SCH ×2 (06:43→17:27)
[2022-08-09] MEDS: LOPERAMIDE 2 MG CAPLET PO SCH ×2 (07:06→20:03)
[2022-08-09] MEDS: DULoxetine 20 MG CAP (CYMBALTA) PO SCH (08:52)
[2022-08-09] MEDS: METOPROLOL SUCC *XL* 12.5MG PER 1/2 TAB (TopROL *XL*) PO SCH ×2 (08:52→20:34)
[2022-08-09] MEDS: LACTOBACILLUS ACIDOPHILUS CAP (BACID) PO SCH ×2 (08:52→17:11)
[2022-08-09] MEDS: guaiFENesin ER 600 MG TAB PO SCH ×2 (08:52→20:34)
[2022-08-09] MEDS: MIRALAX *UNIT DOSE* 17GM PACKET PO SCH (08:52)
[2022-08-09] MEDS: ENOXAPARIN 40MG/0.4ML SYRINGE (J1650 PER 10MG) SC SCH (08:52)
[2022-08-09] MEDS: MULTIVITAMINS/MINERALS THERAP 1 TAB PO SCH (08:53)
[2022-08-09] MEDS: ASPIRIN 81MG ENTERIC TABLET PO SCH (08:53)
[2022-08-09] MEDS: OYSTER SHELL CALCIUM 500 MG TAB PO SCH (08:53)
[2022-08-09] MEDS: MEMANTINE 5MG TABLET (NAMENDA) PO SCH ×2 (08:53→20:35)
[2022-08-09 11:37] VITALS: BP 134/68
[2022-08-09 14:00] VITALS: BP 117/56
[2022-08-09] MEDS: LIDOCAINE 5% (LIDODERM) PATCH TD SCH (17:27)
[2022-08-09 20:00] VITALS: BP 134/60
[2022-08-09] MEDS: QUEtiapine FUMARATE 12.5 MG HALF-TAB PO SCH (20:34)
[2022-08-09] MEDS: ATORVASTATIN 20 MG TAB PO SCH (20:35)
[2022-08-09] MEDS: FAMOTIDINE 20 MG TAB PO SCH (20:35)
[2022-08-09] MEDS: LATANOPROST 0.005% OPHTH SOLN 2.5 ML OU SCH (20:36)
[2022-08-10] MEDS: DICLOFENAC EPOLAMINE 1.3 % PATCH TOP SCH ×2 (05:41→17:50)
[2022-08-10 06:00] VITALS: BP 124/80
[2022-08-10 07:08] LABS: BASO % 0.1 % (0.0-1.0); EOS # 0.1 10^3/uL (0.0-0.5); EOS % 1.7 % (0.0-3.0); HEMATOCRIT 32.3 % (36.0-47.0); HEMOGLOBIN 10.3 g/dl (12.0-15.5); LYMPH # 1.1 10^3/uL (1.5-5.0); LYMPH % 13.7 % (24.0-44.0); MEAN CORPUSCULAR HEMOGLOBIN 29.6 pg (27.0-33.0); MEAN CORPUSCULAR HGB CONC 31.9 g/dl (32.0-36.5); MEAN CORPUSCULAR VOLUME 92.8 fl (80.0-96.0); MONO # 0.5 10^3/uL (0.0-0.8); MONO % 6.6 % (2.0-8.0); NEUTROPHILS % 77.1 % (36.0-66.0); PLATELET COUNT, AUTOMATED 240 10^3/uL (150-450); RED BLOOD COUNT 3.48 10^6/uL (4.00-5.40); WHITE BLOOD COUNT 7.7 10^3/uL (4.0-10.0)
[2022-08-10 07:48] LABS: BLOOD UREA NITROGEN 15 MG/DL (7-18); CARBON DIOXIDE LEVEL 28 MEQ/L (21-32); CHLORIDE LEVEL 108 MEQ/L (98-107); CREATININE FOR GFR 0.64 MG/DL (0.55-1.30); GLOMERULAR FILTRATION RATE > 60.0 (>32); GLUCOSE, FASTING 112 MG/DL (70-100); POTASSIUM SERUM 3.8 MEQ/L (3.5-5.1); SODIUM LEVEL 141 MEQ/L (136-145)
[2022-08-10] MEDS: LOPERAMIDE 2 MG CAPLET PO SCH ×2 (08:21→20:37)
[2022-08-10] MEDS: MEMANTINE 5MG TABLET (NAMENDA) PO SCH ×2 (08:21→20:37)
[2022-08-10] MEDS: DULoxetine 20 MG CAP (CYMBALTA) PO SCH (08:21)
[2022-08-10] MEDS: guaiFENesin ER 600 MG TAB PO SCH ×2 (08:21→20:38)
[2022-08-10] MEDS: LACTOBACILLUS ACIDOPHILUS CAP (BACID) PO SCH ×2 (08:22→17:50)
[2022-08-10] MEDS: METOPROLOL SUCC *XL* 12.5MG PER 1/2 TAB (TopROL *XL*) PO SCH ×2 (08:22→20:39)
[2022-08-10] MEDS: ASPIRIN 81MG ENTERIC TABLET PO SCH (08:22)
[2022-08-10] MEDS: OYSTER SHELL CALCIUM 500 MG TAB PO SCH (08:22)
[2022-08-10] MEDS: ACETAMINOPHEN TAB 650MG DOSE (2X325MG) PO PRN ×2 (08:22→20:38)
[2022-08-10] MEDS: MULTIVITAMINS/MINERALS THERAP 1 TAB PO SCH (08:22)
[2022-08-10] MEDS: MIRALAX *UNIT DOSE* 17GM PACKET PO SCH (08:23)
[2022-08-10] MEDS: ENOXAPARIN 40MG/0.4ML SYRINGE (J1650 PER 10MG) SC SCH (08:23)
[2022-08-10] MEDS: traMADol 50 MG TAB PO PRN (13:31)
[2022-08-10 14:30] VITALS: BP 130/62
[2022-08-10] MEDS: LIDOCAINE 5% (LIDODERM) PATCH TD SCH (17:49)
[2022-08-10 20:00] VITALS: BP 127/58
[2022-08-10] MEDS: ATORVASTATIN 20 MG TAB PO SCH (20:37)
[2022-08-10] MEDS: FAMOTIDINE 20 MG TAB PO SCH (20:37)
[2022-08-10] MEDS: QUEtiapine FUMARATE 12.5 MG HALF-TAB PO SCH (20:38)
[2022-08-10] MEDS: LATANOPROST 0.005% OPHTH SOLN 2.5 ML OU SCH (20:39)
[2022-08-11] MEDS: DICLOFENAC EPOLAMINE 1.3 % PATCH TOP SCH ×2 (05:16→17:32)
[2022-08-11 06:00] VITALS: BP 108/53
[2022-08-11] MEDS: guaiFENesin ER 600 MG TAB PO SCH ×3 (08:41→20:16)
[2022-08-11] MEDS: LACTOBACILLUS ACIDOPHILUS CAP (BACID) PO SCH ×3 (08:41→17:32)
[2022-08-11] MEDS: LOPERAMIDE 2 MG CAPLET PO SCH ×2 (08:41→20:16)
[2022-08-11] MEDS: MULTIVITAMINS/MINERALS THERAP 1 TAB PO SCH ×2 (08:41→09:00)
[2022-08-11] MEDS: DULoxetine 20 MG CAP (CYMBALTA) PO SCH (08:41)
[2022-08-11] MEDS: OYSTER SHELL CALCIUM 500 MG TAB PO SCH ×2 (08:41→09:00)
[2022-08-11] MEDS: traMADol 50 MG TAB PO PRN (08:41)
[2022-08-11] MEDS: ASPIRIN 81MG ENTERIC TABLET PO SCH (08:41)
[2022-08-11] MEDS: MEMANTINE 5MG TABLET (NAMENDA) PO SCH ×2 (08:41→20:16)
[2022-08-11] MEDS: ENOXAPARIN 40MG/0.4ML SYRINGE (J1650 PER 10MG) SC SCH (08:42)
[2022-08-11] MEDS: METOPROLOL SUCC *XL* 12.5MG PER 1/2 TAB (TopROL *XL*) PO SCH ×2 (08:44→20:15)
[2022-08-11] MEDS: MIRALAX *UNIT DOSE* 17GM PACKET PO SCH (08:45)
[2022-08-11 14:00] VITALS: BP 110/62
[2022-08-11] MEDS: LIDOCAINE 5% (LIDODERM) PATCH TD SCH (17:33)
[2022-08-11 20:00] VITALS: BP 130/58
[2022-08-11] MEDS: QUEtiapine FUMARATE 12.5 MG HALF-TAB PO SCH (20:15)
[2022-08-11] MEDS: ATORVASTATIN 20 MG TAB PO SCH (20:16)
[2022-08-11] MEDS: FAMOTIDINE 20 MG TAB PO SCH (20:16)
[2022-08-11] MEDS: LATANOPROST 0.005% OPHTH SOLN 2.5 ML OU SCH (20:16)
[2022-08-12] MEDS: DICLOFENAC EPOLAMINE 1.3 % PATCH TOP SCH ×2 (05:28→18:00)
[2022-08-12 05:29] VITALS: BP 118/57
[2022-08-12] MEDS: ACETAMINOPHEN TAB 650MG DOSE (2X325MG) PO PRN (06:18)
[2022-08-12 06:33] LABS: BASO % 0.3 % (0.0-1.0); EOS # 0.2 10^3/uL (0.0-0.5); EOS % 2.3 % (0.0-3.0); HEMATOCRIT 30.1 % (36.0-47.0); HEMOGLOBIN 9.3 g/dl (12.0-15.5); LYMPH # 1.4 10^3/uL (1.5-5.0); LYMPH % 20.8 % (24.0-44.0); MEAN CORPUSCULAR HEMOGLOBIN 29.2 pg (27.0-33.0); MEAN CORPUSCULAR HGB CONC 30.9 g/dl (32.0-36.5); MEAN CORPUSCULAR VOLUME 94.4 fl (80.0-96.0); MONO # 0.6 10^3/uL (0.0-0.8); NEUTROPHILS # 4.7 10^3/uL (1.5-8.5); NEUTROPHILS % 67.7 % (36.0-66.0); PLATELET COUNT, AUTOMATED 188 10^3/uL (150-450); RED BLOOD COUNT 3.19 10^6/uL (4.00-5.40); WHITE BLOOD COUNT 6.9 10^3/uL (4.0-10.0)
[2022-08-12 07:15] LABS: BLOOD UREA NITROGEN 16 MG/DL (7-18); CALCIUM LEVEL 8.5 MG/DL (8.8-10.2); CARBON DIOXIDE LEVEL 29 MEQ/L (21-32); CHLORIDE LEVEL 106 MEQ/L (98-107); CREATININE FOR GFR 0.61 MG/DL (0.55-1.30); GLOMERULAR FILTRATION RATE > 60.0 (>32); GLUCOSE, FASTING 95 MG/DL (70-100); POTASSIUM SERUM 3.9 MEQ/L (3.5-5.1); SODIUM LEVEL 142 MEQ/L (136-145)
[2022-08-12] MEDS: LOPERAMIDE 2 MG CAPLET PO SCH (07:29)
[2022-08-12] MEDS: LACTOBACILLUS ACIDOPHILUS CAP (BACID) PO SCH ×2 (08:10→18:00)
[2022-08-12] MEDS: MEMANTINE 5MG TABLET (NAMENDA) PO SCH ×2 (08:10→20:46)
[2022-08-12] MEDS: METOPROLOL SUCC *XL* 12.5MG PER 1/2 TAB (TopROL *XL*) PO SCH ×2 (08:10→20:46)
[2022-08-12] MEDS: MULTIVITAMINS/MINERALS THERAP 1 TAB PO SCH (08:10)
[2022-08-12] MEDS: ASPIRIN 81MG ENTERIC TABLET PO SCH (08:10)
[2022-08-12] MEDS: OYSTER SHELL CALCIUM 500 MG TAB PO SCH (08:11)
[2022-08-12] MEDS: guaiFENesin ER 600 MG TAB PO SCH ×2 (08:11→20:16)
[2022-08-12] MEDS: ENOXAPARIN 40MG/0.4ML SYRINGE (J1650 PER 10MG) SC SCH (08:11)
[2022-08-12] MEDS: MIRALAX *UNIT DOSE* 17GM PACKET PO SCH (08:11)
[2022-08-12] MEDS: DULoxetine 20 MG CAP (CYMBALTA) PO SCH (08:12)
[2022-08-12 14:00] VITALS: BP 130/58
[2022-08-12] MEDS: LIDOCAINE 5% (LIDODERM) PATCH TD SCH (18:00)
[2022-08-12 20:00] VITALS: BP 126/62
[2022-08-12] MEDS: QUEtiapine FUMARATE 12.5 MG HALF-TAB PO SCH (20:46)
[2022-08-12] MEDS: FAMOTIDINE 20 MG TAB PO SCH (20:46)
[2022-08-12] MEDS: ATORVASTATIN 20 MG TAB PO SCH (20:46)
[2022-08-12] MEDS: LATANOPROST 0.005% OPHTH SOLN 2.5 ML OU SCH (20:47)
[2022-08-13] MEDS: DICLOFENAC EPOLAMINE 1.3 % PATCH TOP SCH (05:18)
[2022-08-13 06:00] VITALS: BP 128/60
[2022-08-13] MEDS: ASPIRIN 81MG ENTERIC TABLET PO SCH (09:12)
[2022-08-13] MEDS: METOPROLOL SUCC *XL* 12.5MG PER 1/2 TAB (TopROL *XL*) PO SCH (09:12)
[2022-08-13] MEDS: MULTIVITAMINS/MINERALS THERAP 1 TAB PO SCH (09:12)
[2022-08-13 09:13] VITALS: BP 128/60
[2022-08-13] MEDS: DULoxetine 20 MG CAP (CYMBALTA) PO SCH (09:13)
[2022-08-13] MEDS: OYSTER SHELL CALCIUM 500 MG TAB PO SCH (09:13)
[2022-08-13] MEDS: LACTOBACILLUS ACIDOPHILUS CAP (BACID) PO SCH (09:13)
[2022-08-13] MEDS: MEMANTINE 5MG TABLET (NAMENDA) PO SCH (09:14)
[2022-08-13] MEDS: guaiFENesin ER 600 MG TAB PO SCH (09:14)
[2022-08-13] MEDS: ENOXAPARIN 40MG/0.4ML SYRINGE (J1650 PER 10MG) SC SCH (09:14)
[2022-08-13] MEDS ORDERED: OMEP40CA5 PO (09:37)
[2022-08-13] MEDS ORDERED: ASPI81TAEC PO (09:37)
[2022-08-13] MEDS ORDERED: AMLO1TAB25 PO (09:37)
[2022-08-13] MEDS ORDERED: QUET1TAB17 PO (09:37)
[2022-08-13] MEDS ORDERED: CYMB1CAP4 PO (09:37)
[2022-08-13] MEDS ORDERED: ATOR40TA75 PO (09:37)
[2022-08-13] MEDS ORDERED: METO1TAB32 PO (09:37)
[2022-08-13] MEDS ORDERED: MEMA10TA19 PO (09:37)
[2022-08-13] MEDS: ACETAMINOPHEN TAB 650MG DOSE (2X325MG) PO PRN (11:14)
== END 2022-08-13 11:55 | disposition home health service (06) | DRG 559 ==
LOC: M PM&R 18:05
PROVIDERS: ADMIT Physical Medicine & Rehabilitation; ATTEND Physical Medicine & Rehabilitation
DX: S22.089D Unspecified fracture of T11-T12 vertebra, subsequent encounter for fracture with routine healing (principal); U07.1 COVID-19; J12.82 Pneumonia due to coronavirus disease 2019; J98.11 Atelectasis; I50.32 Chronic diastolic (congestive) heart failure; N39.0 Urinary tract infection, site not specified; S22.42XD Multiple fractures of ribs, left side, subsequent encounter for fracture with routine healing; S22.039D Unspecified fracture of third thoracic vertebra, subsequent encounter for fracture with routine healing; S22.029D Unspecified fracture of second thoracic vertebra, subsequent encounter for fracture with routine healing; F03.90 Unspecified dementia, unspecified severity, without behavioral disturbance, psychotic disturbance, mood disturbance, and anxiety; R09.02 Hypoxemia; I11.0 Hypertensive heart disease with heart failure; E78.5 Hyperlipidemia, unspecified; K21.9 Gastro-esophageal reflux disease without esophagitis; S52.501D Unspecified fracture of the lower end of right radius, subsequent encounter for closed fracture with routine healing; S52.502D Unspecified fracture of the lower end of left radius, subsequent encounter for closed fracture with routine healing; H40.9 Unspecified glaucoma; D64.9 Anemia, unspecified; E83.51 Hypocalcemia; M81.0 Age-related osteoporosis without current pathological fracture; M19.90 Unspecified osteoarthritis, unspecified site; I07.1 Rheumatic tricuspid insufficiency; R13.10 Dysphagia, unspecified; R41.0 Disorientation, unspecified; E89.2 Postprocedural hypoparathyroidism; B96.20 Unspecified Escherichia coli [E. coli] as the cause of diseases classified elsewhere; S06.0X0D Concussion without loss of consciousness, subsequent encounter; R53.83 Other fatigue; Z74.09 Other reduced mobility; Z74.1 Need for assistance with personal care; Z99.81 Dependence on supplemental oxygen; Z90.49 Acquired absence of other specified parts of digestive tract; Z88.2 Allergy status to sulfonamides; Z79.899 Other long term (current) drug therapy

== ENCOUNTER → 2022-08-20 | Outpatient (CLI) | payer MEDICARE, MEDICAID ==
[~2022-08-20] MED LIST changes: +AMLO1TAB25 PO; +ASPI81TAEC PO; +CYMB1CAP4 PO; +METO1TAB32 PO; +QUET1TAB17 PO
== END ==
LOC: M SOG 08:00
PROVIDERS: ATTEND Orthopaedic Surgery
DX: M54.6 Pain in thoracic spine (principal); M25.532 Pain in left wrist; M25.531 Pain in right wrist

== ENCOUNTER → 2022-09-01 | Outpatient (REF) | payer MEDICARE, MEDICAID ==
[2022-09-01 16:46] LABS: APPEARANCE, URINE MANUAL CLEAR (CLEAR); COLOR, URINE MANUAL YELLOW (YELLOW)
[2022-09-01 16:47] LABS: BILIRUBIN, URINE MANUAL NEGATIVE (NEGATIVE); BLOOD URINE MANUAL TRACE (NEGATIVE); GLUCOSE, URINE (UA) MANUAL NEGATIVE (NEGATIVE); KETONE, URINE MANUAL 1+ mg/dL (NEGATIVE); LEUKOCYTE ESTERASE, URINE MAN TRACE (NEGATIVE); NITRITE, URINE MANUAL NEGATIVE (NEGATIVE); PROTEIN, URINE MANUAL TRACE mg/dL (NEGATIVE); UROBILINOGEN, URINE MANUAL NORMAL (NORMAL)
[2022-09-01 17:45] LABS: RBC, URINE 0-1 /hpf (0-3)
[2022-09-01 17:46] LABS: BACTERIA, URINE SMALL AMOUNT; HYALINE CAST, URINE NONE SEEN /lpf (0-1); MUCUS, URINE SMALL AMOUNT (NEGATIVE); SQUAMOUS EPITHELIAL CELL URINE SMALL AMOUNT /hpf (SMALL AMT); TRANSITIONAL EPI CELLS, URINE SMALL AMOUNT /hpf
== END ==
LOC: M SFHCADAM 14:36
PROVIDERS: ATTEND Physician Assistant Medical
DX: R35.0 Frequency of micturition (principal)

== ENCOUNTER → 2022-09-03 | Outpatient (CLI) | payer MEDICARE, MEDICAID | LOC: M SOG 08:10 | PROVIDERS: ATTEND Orthopaedic Surgery | DX: S22.000A Wedge compression fracture of unspecified thoracic vertebra, initial encounter for closed fracture (principal); S52.502P Unspecified fracture of the lower end of left radius, subsequent encounter for closed fracture with malunion; S52.501P Unspecified fracture of the lower end of right radius, subsequent encounter for closed fracture with malunion; W18.30XA Fall on same level, unspecified, initial encounter; Y92.009 Unspecified place in unspecified non-institutional (private) residence as the place of occurrence of the external cause ==

== ENCOUNTER 2022-09-20 18:19 | Inpatient (IN) | payer MEDICARE, MEDICAID ==
[~2022-09-20] VITALS: Ht 162.6 cm; Wt 52.3 kg
[2022-09-20] MEDS ORDERED: SERO1TAB3 PO (18:38)
[2022-09-20] MEDS ORDERED: DULO1CAP4 PO (18:38)
[2022-09-20] MEDS ORDERED: LISI20TA33 PO ×2 (18:38→21:31)
[2022-09-20 19:07] LABS: BASO % 0.2 % (0.0-1.0); EOS # 0.1 10^3/uL (0.0-0.5); EOS % 1.3 % (0.0-3.0); HEMATOCRIT 35.2 % (36.0-47.0); HEMOGLOBIN 11.3 g/dl (12.0-15.5); LYMPH # 2.2 10^3/uL (1.5-5.0); LYMPH % 25.3 % (24.0-44.0); MEAN CORPUSCULAR HEMOGLOBIN 30.3 pg (27.0-33.0); MEAN CORPUSCULAR HGB CONC 32.1 g/dl (32.0-36.5); MEAN CORPUSCULAR VOLUME 94.4 fl (80.0-96.0); MONO # 0.6 10^3/uL (0.0-0.8); MONO % 6.7 % (2.0-8.0); NEUTROPHILS # 5.8 10^3/uL (1.5-8.5); NEUTROPHILS % 66.3 % (36.0-66.0); PLATELET COUNT, AUTOMATED 228 10^3/uL (150-450); RED BLOOD COUNT 3.73 10^6/uL (4.00-5.40); WHITE BLOOD COUNT 8.8 10^3/uL (4.0-10.0)
[2022-09-20 19:29] LABS: ALBUMIN 3.1 G/DL (3.2-5.2); ALKALINE PHOSPHATASE 158 U/L (46-116); ALT/SGPT 20 U/L (7.0-40); AST/SGOT 21 U/L (<34); BILIRUBIN,TOTAL 0.3 MG/DL (0.3-1.2); BLOOD UREA NITROGEN 16 MG/DL (9-23); CALCIUM LEVEL 9.3 MG/DL (8.3-10.6); CARBON DIOXIDE LEVEL 27 MMOL/L (20-31); CHLORIDE LEVEL 108 MMOL/L (98-107); CREATININE FOR GFR 0.65 MG/DL (0.55-1.30); GLOMERULAR FILTRATION RATE > 60.0 (>32); GLUCOSE, FASTING 111 MG/DL (74-106); POTASSIUM SERUM 3.8 MMOL/L (3.5-5.1); SODIUM LEVEL 143 MMOL/L (136-145); TOTAL PROTEIN 5.6 G/DL (5.7-8.2)
[2022-09-20 20:44] LABS: RSV AMPLIFICATION NEGATIVE (NEGATIVE)
[2022-09-20] MEDS ORDERED: ATOR40TA75 PO (21:25)
[2022-09-20] MEDS ORDERED: AMLO1TAB25 PO (21:25)
[2022-09-20] MEDS ORDERED: QUET1TAB17 PO (21:31)
[2022-09-20] MEDS ORDERED: MEMA10TA19 PO (21:31)
[2022-09-20] MEDS ORDERED: DULO20CA27 PO (21:31)
[2022-09-20] MEDS ORDERED: METO1TAB32 PO (21:31)
[2022-09-20] MEDS ORDERED: OMEP40CA5 PO (21:31)
[2022-09-20] MEDS ORDERED: ACET650T15 PO (21:32)
[2022-09-20] MEDS ORDERED: MELA10CA PO (21:32)
[2022-09-20] MEDS ORDERED: HOME MED LIST COMPLETE! XX SCH (21:35)
[2022-09-20 23:00] VITALS: BP 145/63
[2022-09-20] MEDS: RAMELTEON 8 MG TAB (ROZEREM) PO SCH (23:09)
[2022-09-21] MEDS ORDERED: TEMAZEPAM 7.5 MG CAP PO ONE (02:00)
[2022-09-21 06:00] VITALS: BP 147/70
[2022-09-21 06:07] LABS: HEMATOCRIT 38.9 % (36.0-47.0); HEMOGLOBIN 12.1 g/dl (12.0-15.5); MEAN CORPUSCULAR HEMOGLOBIN 29.5 pg (27.0-33.0); MEAN CORPUSCULAR HGB CONC 31.1 g/dl (32.0-36.5); MEAN CORPUSCULAR VOLUME 94.9 fl (80.0-96.0); PLATELET COUNT, AUTOMATED 251 10^3/uL (150-450); WHITE BLOOD COUNT 7.8 10^3/uL (4.0-10.0)
[2022-09-21 06:29] LABS: BLOOD UREA NITROGEN 12 MG/DL (9-23); CALCIUM LEVEL 9.3 MG/DL (8.3-10.6); CARBON DIOXIDE LEVEL 29 MMOL/L (20-31); CHLORIDE LEVEL 107 MMOL/L (98-107); CREATININE FOR GFR 0.57 MG/DL (0.55-1.30); GLOMERULAR FILTRATION RATE > 60.0 (>32); GLUCOSE, FASTING 95 MG/DL (74-106); POTASSIUM SERUM 3.6 MMOL/L (3.5-5.1); SODIUM LEVEL 145 MMOL/L (136-145)
[2022-09-21] MEDS: METOPROLOL SUCC *XL* 12.5MG PER 1/2 TAB (TopROL *XL*) PO SCH ×2 (08:13→21:00)
[2022-09-21] MEDS: HEPARIN SOD (PORCINE) 5000UNITS/ML 1ML VIAL/SYRINGE SQ SCH ×2 (08:14→20:58)
[2022-09-21] MEDS: MEMANTINE 5MG TABLET (NAMENDA) PO SCH ×2 (09:00→20:57)
[2022-09-21] MEDS ORDERED: OMEPRAZOLE 20MG CAP PO SCH (09:00)
[2022-09-21] MEDS: DULoxetine 20MG CAP (CYMBALTA) PO SCH (10:21)
[2022-09-21 14:00] VITALS: BP 123/59
[2022-09-21 19:39] LABS: HEMATOCRIT 37.8 % (36.0-47.0)
[2022-09-21] MEDS: RAMELTEON 8 MG TAB (ROZEREM) PO SCH (20:57)
[2022-09-21] MEDS: ATORVASTATIN 20 MG TAB PO SCH (20:57)
[2022-09-21] MEDS: QUEtiapine FUMARATE 25 MG TAB PO SCH (20:57)
[2022-09-21 21:00] VITALS: BP 126/59
[2022-09-22] MEDS: PANTOPRAZOLE 40MG VIAL IV SCH ×3 (01:10→21:57)
[2022-09-22 01:20] LABS: HEMATOCRIT 34.9 % (36.0-47.0)
[2022-09-22 05:25] VITALS: BP 133/69
[2022-09-22 06:11] LABS: BASO % 0.2 % (0.0-1.0); EOS # 0.2 10^3/uL (0.0-0.5); EOS % 1.9 % (0.0-3.0); HEMATOCRIT 35.3 % (36.0-47.0); HEMOGLOBIN 11.2 g/dl (12.0-15.5); LYMPH # 1.2 10^3/uL (1.5-5.0); MEAN CORPUSCULAR HGB CONC 31.7 g/dl (32.0-36.5); MEAN CORPUSCULAR VOLUME 94.6 fl (80.0-96.0); MONO # 0.6 10^3/uL (0.0-0.8); MONO % 7.8 % (2.0-8.0); NEUTROPHILS # 6.1 10^3/uL (1.5-8.5); NEUTROPHILS % 74.6 % (36.0-66.0); PLATELET COUNT, AUTOMATED 244 10^3/uL (150-450); RED BLOOD COUNT 3.73 10^6/uL (4.00-5.40); WHITE BLOOD COUNT 8.2 10^3/uL (4.0-10.0)
[2022-09-22 06:46] LABS: BLOOD UREA NITROGEN 13 MG/DL (9-23); CALCIUM LEVEL 8.9 MG/DL (8.3-10.6); CARBON DIOXIDE LEVEL 28 MMOL/L (20-31); CHLORIDE LEVEL 106 MMOL/L (98-107); CREATININE FOR GFR 0.68 MG/DL (0.55-1.30); GLOMERULAR FILTRATION RATE > 60.0 (>32); GLUCOSE, FASTING 97 MG/DL (74-106); POTASSIUM SERUM 3.4 MMOL/L (3.5-5.1); SODIUM LEVEL 144 MMOL/L (136-145)
[2022-09-22] MEDS ORDERED: POTASSIUM CHLORIDE 10MEQ SR TABLET PO ONE (07:10)
[2022-09-22 14:00] VITALS: BP 124/72
[2022-09-22] MEDS: MEMANTINE 5MG TABLET (NAMENDA) PO SCH ×2 (14:44→21:58)
[2022-09-22] MEDS: DULoxetine 20MG CAP (CYMBALTA) PO SCH (14:45)
[2022-09-22] MEDS: METOPROLOL SUCC *XL* 12.5MG PER 1/2 TAB (TopROL *XL*) PO SCH ×2 (14:46→21:00)
[2022-09-22] MEDS ORDERED: OLANZapine INTRAMUSCULAR 10MG VIAL IM ONE (15:20)
[2022-09-22 18:13] LABS: HEMATOCRIT 36.7 % (36.0-47.0); HEMOGLOBIN 11.8 g/dl (12.0-15.5)
[2022-09-22] MEDS: LACTULOSE 20 GM/30 ML SYRUP UD PO SCH (21:57)
[2022-09-22] MEDS: QUEtiapine FUMARATE 25 MG TAB PO SCH (21:58)
[2022-09-22] MEDS: ATORVASTATIN 20 MG TAB PO SCH (21:58)
[2022-09-22] MEDS: RAMELTEON 8 MG TAB (ROZEREM) PO SCH (21:58)
[2022-09-22 22:00] VITALS: BP 109/56
[2022-09-23] MEDS: ACETAMINOPHEN TAB 650MG DOSE (2X325MG) PO PRN (00:16)
[2022-09-23 06:15] VITALS: BP 122/58
[2022-09-23 08:16] LABS: BASO % 0.3 % (0.0-1.0); EOS # 0.2 10^3/uL (0.0-0.5); EOS % 2.1 % (0.0-3.0); HEMOGLOBIN 10.9 g/dl (12.0-15.5); LYMPH # 2.9 10^3/uL (1.5-5.0); LYMPH % 30.1 % (24.0-44.0); MEAN CORPUSCULAR HEMOGLOBIN 29.8 pg (27.0-33.0); MEAN CORPUSCULAR HGB CONC 31.1 g/dl (32.0-36.5); MEAN CORPUSCULAR VOLUME 95.6 fl (80.0-96.0); MONO # 0.8 10^3/uL (0.0-0.8); MONO % 8.8 % (2.0-8.0); NEUTROPHILS # 5.6 10^3/uL (1.5-8.5); NEUTROPHILS % 58.2 % (36.0-66.0); PLATELET COUNT, AUTOMATED 228 10^3/uL (150-450); RED BLOOD COUNT 3.66 10^6/uL (4.00-5.40); WHITE BLOOD COUNT 9.6 10^3/uL (4.0-10.0)
[2022-09-23 09:04] LABS: BLOOD UREA NITROGEN 9 MG/DL (9-23); CARBON DIOXIDE LEVEL 29 MMOL/L (20-31); CHLORIDE LEVEL 110 MMOL/L (98-107); CREATININE FOR GFR 0.82 MG/DL (0.55-1.30); GLOMERULAR FILTRATION RATE > 60.0 (>32); GLUCOSE, FASTING 94 MG/DL (74-106); POTASSIUM SERUM 3.5 MMOL/L (3.5-5.1); SODIUM LEVEL 146 MMOL/L (136-145)
[2022-09-23] MEDS ORDERED: POLYETHYLENE GLYCOL (MIRALAX) 238GM BOTTLE PO ONE ×2 (11:00→19:00)
[2022-09-23] MEDS: MEMANTINE 5MG TABLET (NAMENDA) PO SCH ×2 (11:33→20:55)
[2022-09-23] MEDS: LACTULOSE 20 GM/30 ML SYRUP UD PO SCH ×4 (11:33→20:55)
[2022-09-23] MEDS: PANTOPRAZOLE 40MG VIAL IV SCH ×2 (11:33→20:54)
[2022-09-23] MEDS: DULoxetine 20MG CAP (CYMBALTA) PO SCH (11:34)
[2022-09-23] MEDS: METOPROLOL SUCC *XL* 12.5MG PER 1/2 TAB (TopROL *XL*) PO SCH ×2 (11:34→20:55)
[2022-09-23 20:51] VITALS: BP 115/69
[2022-09-23] MEDS: QUEtiapine FUMARATE 25 MG TAB PO SCH (20:54)
[2022-09-23] MEDS: RAMELTEON 8 MG TAB (ROZEREM) PO SCH (20:54)
[2022-09-23] MEDS: ATORVASTATIN 20 MG TAB PO SCH (20:55)
[2022-09-24] VITALS (8 sets, daily range): BP systolic 101–120; BP diastolic 57–64
[2022-09-24 06:37] LABS: BASO % 0.2 % (0.0-1.0); EOS # 0.1 10^3/uL (0.0-0.5); EOS % 0.6 % (0.0-3.0); HEMATOCRIT 37.1 % (36.0-47.0); HEMOGLOBIN 11.6 g/dl (12.0-15.5); LYMPH # 2.4 10^3/uL (1.5-5.0); MEAN CORPUSCULAR HGB CONC 31.3 g/dl (32.0-36.5); MEAN CORPUSCULAR VOLUME 95.9 fl (80.0-96.0); MONO # 0.8 10^3/uL (0.0-0.8); MONO % 7.2 % (2.0-8.0); NEUTROPHILS # 7.4 10^3/uL (1.5-8.5); NEUTROPHILS % 69.6 % (36.0-66.0); PLATELET COUNT, AUTOMATED 257 10^3/uL (150-450); RED BLOOD COUNT 3.87 10^6/uL (4.00-5.40); WHITE BLOOD COUNT 10.7 10^3/uL (4.0-10.0)
[2022-09-24 07:18] LABS: BLOOD UREA NITROGEN 9 MG/DL (9-23); CALCIUM LEVEL 9.1 MG/DL (8.3-10.6); CARBON DIOXIDE LEVEL 26 MMOL/L (20-31); CHLORIDE LEVEL 110 MMOL/L (98-107); CREATININE FOR GFR 0.75 MG/DL (0.55-1.30); GLOMERULAR FILTRATION RATE > 60.0 (>32); GLUCOSE, FASTING 107 MG/DL (74-106); POTASSIUM SERUM 3.1 MMOL/L (3.5-5.1); SODIUM LEVEL 146 MMOL/L (136-145)
[2022-09-24] MEDS ORDERED: MOM 30ML SUSPENSION UDC PO ONE (08:00)
[2022-09-24] MEDS ORDERED: KCL 10MEQ/100ML SWI (KRUN) 10 MEQ in IV 1 EA IV SCH (09:00)
[2022-09-24] MEDS: DULoxetine 20MG CAP (CYMBALTA) PO SCH (09:34)
[2022-09-24] MEDS: MEMANTINE 5MG TABLET (NAMENDA) PO SCH ×2 (09:34→21:00)
[2022-09-24] MEDS: METOPROLOL SUCC *XL* 12.5MG PER 1/2 TAB (TopROL *XL*) PO SCH ×2 (09:34→21:03)
[2022-09-24] MEDS: LACTULOSE 20 GM/30 ML SYRUP UD PO SCH ×4 (09:34→21:01)
[2022-09-24] MEDS: PANTOPRAZOLE 40MG VIAL IV SCH ×2 (09:34→21:01)
[2022-09-24] MEDS ORDERED: POTASSIUM CHLORIDE 10MEQ SR TABLET PO ONE ×2 (10:20→13:00)
[2022-09-24] MEDS ORDERED: propofoL 200 MG/20 ML VIAL As Ordered ONE (15:48)
[2022-09-24] MEDS: RAMELTEON 8 MG TAB (ROZEREM) PO SCH (20:59)
[2022-09-24] MEDS: ATORVASTATIN 20 MG TAB PO SCH (21:00)
[2022-09-24] MEDS: QUEtiapine FUMARATE 25 MG TAB PO SCH (21:00)
[2022-09-24] MEDS: ACETAMINOPHEN TAB 650MG DOSE (2X325MG) PO PRN (21:55)
[2022-09-25 01:05] VITALS: BP 114/62
[2022-09-25 05:05] VITALS: BP 112/50
[2022-09-25 06:34] LABS: BASO % 0.1 % (0.0-1.0); EOS # 0.2 10^3/uL (0.0-0.5); EOS % 2.3 % (0.0-3.0); HEMATOCRIT 34.1 % (36.0-47.0); HEMOGLOBIN 10.6 g/dl (12.0-15.5); LYMPH # 2.2 10^3/uL (1.5-5.0); LYMPH % 31.3 % (24.0-44.0); MEAN CORPUSCULAR HEMOGLOBIN 30.1 pg (27.0-33.0); MEAN CORPUSCULAR HGB CONC 31.1 g/dl (32.0-36.5); MEAN CORPUSCULAR VOLUME 96.9 fl (80.0-96.0); MONO # 0.6 10^3/uL (0.0-0.8); MONO % 8.6 % (2.0-8.0); NEUTROPHILS % 57.1 % (36.0-66.0); PLATELET COUNT, AUTOMATED 223 10^3/uL (150-450); RED BLOOD COUNT 3.52 10^6/uL (4.00-5.40); WHITE BLOOD COUNT 7.1 10^3/uL (4.0-10.0)
[2022-09-25 07:04] LABS: BLOOD UREA NITROGEN 15 MG/DL (9-23); CALCIUM LEVEL 8.9 MG/DL (8.3-10.6); CARBON DIOXIDE LEVEL 24 MMOL/L (20-31); CHLORIDE LEVEL 112 MMOL/L (98-107); CREATININE FOR GFR 0.81 MG/DL (0.55-1.30); GLOMERULAR FILTRATION RATE > 60.0 (>32); GLUCOSE, FASTING 90 MG/DL (74-106); POTASSIUM SERUM 3.7 MMOL/L (3.5-5.1); SODIUM LEVEL 148 MMOL/L (136-145)
[2022-09-25] MEDS: METOPROLOL SUCC *XL* 12.5MG PER 1/2 TAB (TopROL *XL*) PO SCH ×2 (08:19→20:15)
[2022-09-25] MEDS: MEMANTINE 5MG TABLET (NAMENDA) PO SCH ×2 (08:20→20:14)
[2022-09-25] MEDS: PANTOPRAZOLE 40MG TAB (PROTONIX) PO SCH ×2 (08:20→20:15)
[2022-09-25] MEDS: DULoxetine 20MG CAP (CYMBALTA) PO SCH (08:20)
[2022-09-25] MEDS: LACTULOSE 20 GM/30 ML SYRUP UD PO SCH (08:20)
[2022-09-25 09:28] VITALS: BP 123/60
[2022-09-25 13:00] VITALS: BP 120/59
[2022-09-25 17:00] VITALS: BP 117/58
[2022-09-25 19:48] LABS: BLOOD UREA NITROGEN 17 MG/DL (9-23); CALCIUM LEVEL 8.8 MG/DL (8.3-10.6); CARBON DIOXIDE LEVEL 23 MMOL/L (20-31); CHLORIDE LEVEL 108 MMOL/L (98-107); CREATININE FOR GFR 0.72 MG/DL (0.55-1.30); GLOMERULAR FILTRATION RATE > 60.0 (>32); GLUCOSE, FASTING 122 MG/DL (74-106); POTASSIUM SERUM 3.6 MMOL/L (3.5-5.1); SODIUM LEVEL 144 MMOL/L (136-145)
[2022-09-25 20:00] VITALS: BP 119/59
[2022-09-25] MEDS: ATORVASTATIN 20 MG TAB PO SCH (20:14)
[2022-09-25] MEDS: QUEtiapine FUMARATE 25 MG TAB PO SCH (20:15)
[2022-09-25] MEDS: RAMELTEON 8 MG TAB (ROZEREM) PO SCH (20:15)
[2022-09-26 05:53] VITALS: BP 116/59
[2022-09-26] MEDS ORDERED: POTASSIUM CHLORIDE 10MEQ SR TABLET PO ONE (06:10)
[2022-09-26 06:43] LABS: BASO % 0.3 % (0.0-1.0); EOS # 0.2 10^3/uL (0.0-0.5); EOS % 2.7 % (0.0-3.0); HEMOGLOBIN 10.6 g/dl (12.0-15.5); LYMPH # 2.1 10^3/uL (1.5-5.0); LYMPH % 27.7 % (24.0-44.0); MEAN CORPUSCULAR HEMOGLOBIN 30.6 pg (27.0-33.0); MEAN CORPUSCULAR HGB CONC 32.1 g/dl (32.0-36.5); MEAN CORPUSCULAR VOLUME 95.4 fl (80.0-96.0); MONO # 0.7 10^3/uL (0.0-0.8); MONO % 9.2 % (2.0-8.0); NEUTROPHILS # 4.5 10^3/uL (1.5-8.5); NEUTROPHILS % 59.7 % (36.0-66.0); PLATELET COUNT, AUTOMATED 234 10^3/uL (150-450); RED BLOOD COUNT 3.46 10^6/uL (4.00-5.40); WHITE BLOOD COUNT 7.5 10^3/uL (4.0-10.0)
[2022-09-26 07:15] LABS: BLOOD UREA NITROGEN 15 MG/DL (9-23); CALCIUM LEVEL 8.7 MG/DL (8.3-10.6); CARBON DIOXIDE LEVEL 24 MMOL/L (20-31); CHLORIDE LEVEL 109 MMOL/L (98-107); CREATININE FOR GFR 0.67 MG/DL (0.55-1.30); GLOMERULAR FILTRATION RATE > 60.0 (>32); GLUCOSE, FASTING 99 MG/DL (74-106); POTASSIUM SERUM 3.4 MMOL/L (3.5-5.1); SODIUM LEVEL 145 MMOL/L (136-145)
[2022-09-26] MEDS: METOPROLOL SUCC *XL* 12.5MG PER 1/2 TAB (TopROL *XL*) PO SCH ×2 (09:00→20:43)
[2022-09-26] MEDS: PANTOPRAZOLE 40MG TAB (PROTONIX) PO SCH ×2 (09:00→20:43)
[2022-09-26] MEDS: LACTULOSE 20 GM/30 ML SYRUP UD PO SCH (09:00)
[2022-09-26] MEDS: MEMANTINE 5MG TABLET (NAMENDA) PO SCH ×2 (09:00→20:43)
[2022-09-26] MEDS: NYSTATIN 100,000 UNITS/GM TOPICAL PWD 15GM TOP PRN (09:18)
[2022-09-26] MEDS: DULoxetine 20MG CAP (CYMBALTA) PO SCH (09:19)
[2022-09-26 14:00] VITALS: BP 115/59
[2022-09-26 20:22] VITALS: BP 120/66
[2022-09-26] MEDS: QUEtiapine FUMARATE 25 MG TAB PO SCH (20:43)
[2022-09-26] MEDS: RAMELTEON 8 MG TAB (ROZEREM) PO SCH (20:43)
[2022-09-26] MEDS: ATORVASTATIN 20 MG TAB PO SCH (20:43)
[2022-09-27] MEDS: ACETAMINOPHEN TAB 650MG DOSE (2X325MG) PO PRN (01:25)
[2022-09-27 05:30] VITALS: BP 118/57
[2022-09-27] MEDS ORDERED: POTASSIUM CHLORIDE 10MEQ SR TABLET PO ONE (10:30)
[2022-09-27] MEDS: LACTULOSE 20 GM/30 ML SYRUP UD PO SCH (11:14)
[2022-09-27] MEDS: NYSTATIN 100,000 UNITS/GM TOPICAL PWD 15GM TOP PRN ×2 (11:14→21:34)
[2022-09-27] MEDS: METOPROLOL SUCC *XL* 12.5MG PER 1/2 TAB (TopROL *XL*) PO SCH ×2 (11:15→21:37)
[2022-09-27] MEDS: MEMANTINE 5MG TABLET (NAMENDA) PO SCH ×2 (11:15→21:33)
[2022-09-27] MEDS: PANTOPRAZOLE 40MG TAB (PROTONIX) PO SCH ×2 (11:15→21:34)
[2022-09-27] MEDS: DULoxetine 20MG CAP (CYMBALTA) PO SCH (11:23)
[2022-09-27 14:00] VITALS: BP 110/64
[2022-09-27] MEDS: ATORVASTATIN 20 MG TAB PO SCH (21:33)
[2022-09-27] MEDS: RAMELTEON 8 MG TAB (ROZEREM) PO SCH (21:33)
[2022-09-27] MEDS: QUEtiapine FUMARATE 25 MG TAB PO SCH (21:34)
[2022-09-28 05:30] VITALS: BP 125/72
[2022-09-28] MEDS ORDERED: LACT20EL PO (08:39)
[2022-09-28] MEDS: MEMANTINE 5MG TABLET (NAMENDA) PO SCH (09:04)
[2022-09-28] MEDS: PANTOPRAZOLE 40MG TAB (PROTONIX) PO SCH (09:04)
[2022-09-28] MEDS: DULoxetine 20MG CAP (CYMBALTA) PO SCH (09:04)
[2022-09-28 09:05] VITALS: BP 125/72
[2022-09-28] MEDS: METOPROLOL SUCC *XL* 12.5MG PER 1/2 TAB (TopROL *XL*) PO SCH (09:05)
[2022-09-28] MEDS: LACTULOSE 20 GM/30 ML SYRUP UD PO SCH (09:05)
[2022-09-28] MEDS ORDERED: POTASSIUM CHLORIDE 10MEQ SR TABLET PO ONE (10:00)
== END 2022-09-28 11:54 | disposition home health service (06) | DRG 884 ==
LOC: M ED 18:19 → EDBD 18:19 → M ED INP 18:20 → ENRESERV 22:11 → M MSPAV 22:51 → OBSVTOIN 09-21 09:57
PROVIDERS: ADMIT Internal Medicine; ATTEND Internal Medicine
PROC: 0DBN8ZX Excision of Sigmoid Colon, Via Natural or Artificial Opening Endoscopic, Diagnostic (ICD-10-PCS; principal; 2022-09-24 13:20)
DX: F03.C18 Unspecified dementia, severe, with other behavioral disturbance (principal); I50.32 Chronic diastolic (congestive) heart failure; J96.10 Chronic respiratory failure, unspecified whether with hypoxia or hypercapnia; K92.1 Melena; F05 Delirium due to known physiological condition; R13.10 Dysphagia, unspecified; I11.0 Hypertensive heart disease with heart failure; K21.9 Gastro-esophageal reflux disease without esophagitis; E78.5 Hyperlipidemia, unspecified; K64.8 Other hemorrhoids; K59.09 Other constipation; K63.89 Other specified diseases of intestine; H40.9 Unspecified glaucoma; K57.30 Diverticulosis of large intestine without perforation or abscess without bleeding; E87.6 Hypokalemia; M81.0 Age-related osteoporosis without current pathological fracture; Z99.81 Dependence on supplemental oxygen; Z86.16 Personal history of COVID-19; Z90.49 Acquired absence of other specified parts of digestive tract

== ENCOUNTER 2022-10-03 17:01 | Emergency (ER) | payer MEDICARE, MEDICAID ==
[~2022-10-03] VITALS: Ht 154.9 cm; Wt 52.9 kg
[~2022-10-03 17:01] MED LIST changes: +ACET650T15 PO; +DULO1CAP4 PO; +DULO20CA27 PO; +LACT20EL PO; +MELA10CA PO; +SERO1TAB3 PO
[2022-10-03 17:57] LABS: BASO % 0.3 % (0.0-1.0); EOS # 0.2 10^3/uL (0.0-0.5); EOS % 2.3 % (0.0-3.0); HEMATOCRIT 36.2 % (36.0-47.0); HEMOGLOBIN 11.5 g/dl (12.0-15.5); LYMPH # 2.2 10^3/uL (1.5-5.0); LYMPH % 22.4 % (24.0-44.0); MEAN CORPUSCULAR HEMOGLOBIN 29.9 pg (27.0-33.0); MEAN CORPUSCULAR HGB CONC 31.8 g/dl (32.0-36.5); MONO # 0.6 10^3/uL (0.0-0.8); MONO % 6.6 % (2.0-8.0); NEUTROPHILS # 6.5 10^3/uL (1.5-8.5); PLATELET COUNT, AUTOMATED 250 10^3/uL (150-450); RED BLOOD COUNT 3.85 10^6/uL (4.00-5.40); WHITE BLOOD COUNT 9.6 10^3/uL (4.0-10.0)
[2022-10-03 18:23] LABS: BILIRUBIN,DIRECT < 0.1 MG/DL (<0.4)
[2022-10-03 18:25] LABS: THYROID STIMULATING HORMONE 2.945 uIU/ML (0.55-4.78)
[2022-10-03 18:27] LABS: ALKALINE PHOSPHATASE 154 U/L (46-116); ALT/SGPT 14 U/L (7.0-40); AST/SGOT 18 U/L (<34); BILIRUBIN,TOTAL 0.2 MG/DL (0.3-1.2); BLOOD UREA NITROGEN 13 MG/DL (9-23); CALCIUM LEVEL 8.8 MG/DL (8.3-10.6); CARBON DIOXIDE LEVEL 23 MMOL/L (20-31); CHLORIDE LEVEL 109 MMOL/L (98-107); CREATININE FOR GFR 0.62 MG/DL (0.55-1.30); GLOMERULAR FILTRATION RATE > 60.0 (>32); GLUCOSE, FASTING 124 MG/DL (74-106); POTASSIUM SERUM 3.3 MMOL/L (3.5-5.1); SODIUM LEVEL 144 MMOL/L (136-145); TOTAL PROTEIN 5.8 G/DL (5.7-8.2)
[2022-10-03] MEDS ORDERED: POTASSIUM CHLORIDE 10MEQ SR TABLET PO ONE (18:40)
[2022-10-03 19:30] VITALS: BP 145/65
== END 2022-10-03 19:47 | disposition home or self-care (01) ==
LOC: EDBD 17:01 → M ED 17:01
DX: F03.90 Unspecified dementia, unspecified severity, without behavioral disturbance, psychotic disturbance, mood disturbance, and anxiety (principal); I50.9 Heart failure, unspecified; I10 Essential (primary) hypertension; K21.9 Gastro-esophageal reflux disease without esophagitis; M81.0 Age-related osteoporosis without current pathological fracture; Z79.899 Other long term (current) drug therapy; Z88.2 Allergy status to sulfonamides

== ENCOUNTER 2022-10-07 17:03 | Observation (INO) | payer MEDICARE, MEDICAID ==
[~2022-10-07] VITALS: Ht 157.5 cm; Wt 49.6 kg
[2022-10-07 19:34] LABS: BASO % 0.2 % (0.0-1.0); EOS # 0.2 10^3/uL (0.0-0.5); EOS % 1.7 % (0.0-3.0); HEMATOCRIT 36.8 % (36.0-47.0); HEMOGLOBIN 11.6 g/dl (12.0-15.5); LYMPH # 2.1 10^3/uL (1.5-5.0); LYMPH % 19.9 % (24.0-44.0); MEAN CORPUSCULAR HEMOGLOBIN 29.9 pg (27.0-33.0); MEAN CORPUSCULAR HGB CONC 31.5 g/dl (32.0-36.5); MEAN CORPUSCULAR VOLUME 94.8 fl (80.0-96.0); MONO # 0.8 10^3/uL (0.0-0.8); MONO % 7.3 % (2.0-8.0); NEUTROPHILS # 7.3 10^3/uL (1.5-8.5); NEUTROPHILS % 70.5 % (36.0-66.0); PLATELET COUNT, AUTOMATED 242 10^3/uL (150-450); RED BLOOD COUNT 3.88 10^6/uL (4.00-5.40); WHITE BLOOD COUNT 10.3 10^3/uL (4.0-10.0)
[2022-10-07 20:02] LABS: ETHYL ALCOHOL (ETHANOL) 0.003 % (0.000-0.010)
[2022-10-07 20:04] LABS: BILIRUBIN,DIRECT < 0.1 MG/DL (<0.4); SALICYLATE LEVEL < 3.0 MG/DL (<30)
[2022-10-07 20:05] LABS: ACETAMINOPHEN LEVEL < 2.0 UG/ML (10.0-20.0); ALBUMIN 3.2 G/DL (3.2-5.2); ALKALINE PHOSPHATASE 148 U/L (46-116); ALT/SGPT 13 U/L (7.0-40); AST/SGOT 23 U/L (<34); BILIRUBIN,TOTAL 0.3 MG/DL (0.3-1.2); BLOOD UREA NITROGEN 11 MG/DL (9-23); CALCIUM LEVEL 9.1 MG/DL (8.3-10.6); CARBON DIOXIDE LEVEL 28 MMOL/L (20-31); CHLORIDE LEVEL 107 MMOL/L (98-107); CREATININE FOR GFR 0.74 MG/DL (0.55-1.30); GLOMERULAR FILTRATION RATE > 60.0 (>32); GLUCOSE, FASTING 117 MG/DL (74-106); POTASSIUM SERUM 3.7 MMOL/L (3.5-5.1); SODIUM LEVEL 145 MMOL/L (136-145)
[2022-10-07 20:07] LABS: RSV AMPLIFICATION NEGATIVE (NEGATIVE); THYROID STIMULATING HORMONE 3.123 uIU/ML (0.55-4.78)
[2022-10-07 20:08] LABS: AMPHETAMINES LEVEL URINE NEGATIVE (NEGATIVE); BARBITURATES URINE NEGATIVE (NEGATIVE); BENZODIAZEPINES URINE NEGATIVE (NEGATIVE); CANNABINOIDS URINE NEGATIVE (NEGATIVE); COCAINE METABOLITE URINE NEGATIVE (NEGATIVE); METHADONE URINE NEGATIVE (NEGATIVE); OPIATES URINE NEGATIVE (NEGATIVE); PHENCYCLIDINE URINE NEGATIVE (NEGATIVE)
[2022-10-07] MEDS ORDERED: QUEtiapine FUMARATE 25 MG TAB PO STA (20:29)
[2022-10-07] MEDS ORDERED: cefTRIAXone SOD 1 GM in D5W MINI-BAG PLUS 50 ML IV ONE (20:30)
[2022-10-07] MEDS ORDERED: LACT20EL PO (20:50)
[2022-10-07] MEDS ORDERED: OYST1TAB PO (20:50)
[2022-10-07] MEDS ORDERED: ASPI-161 PO (20:50)
[2022-10-07] MEDS ORDERED: NYST1POW9 TOP (20:50)
[2022-10-07] MEDS ORDERED: HOME MED LIST COMPLETE! XX SCH (20:50)
[2022-10-07] MEDS ORDERED: IBUP200C29 PO (20:50)
[2022-10-07] MEDS ORDERED: XALA0.007 OU (20:50)
[2022-10-07] MEDS ORDERED: QUEtiapine FUMARATE 25 MG TAB PO SCH (21:00)
[2022-10-07] MEDS ORDERED: NYSTATIN 100,000 UNITS/GM TOPICAL PWD 15GM TOP PRN (22:45)
[2022-10-08] MEDS: LATANOPROST 0.005% OPHTH SOLN 2.5 ML OU SCH (00:45)
[2022-10-08] MEDS: ATORVASTATIN 20 MG TAB PO SCH ×2 (00:47→20:26)
[2022-10-08] MEDS: METOPROLOL SUCC *XL* 12.5MG PER 1/2 TAB (TopROL *XL*) PO SCH ×3 (00:47→20:27)
[2022-10-08 06:09] LABS: BLOOD UREA NITROGEN 8 MG/DL (9-23); CARBON DIOXIDE LEVEL 28 MMOL/L (20-31); CHLORIDE LEVEL 108 MMOL/L (98-107); CREATININE FOR GFR 0.56 MG/DL (0.55-1.30); GLOMERULAR FILTRATION RATE > 60.0 (>32); GLUCOSE, FASTING 98 MG/DL (74-106); POTASSIUM SERUM 3.3 MMOL/L (3.5-5.1); SODIUM LEVEL 145 MMOL/L (136-145)
[2022-10-08] MEDS ORDERED: CEFDINIR 300 MG CAP (OMNICEF) PO SCH (12:00)
[2022-10-08] MEDS: PANTOPRAZOLE 40MG TAB (PROTONIX) PO SCH (12:13)
[2022-10-08] MEDS: ASPIRIN 81MG ENTERIC TABLET PO SCH (12:13)
[2022-10-08] MEDS: DULoxetine 20MG CAP (CYMBALTA) PO SCH (12:13)
[2022-10-08 12:30] VITALS: BP 123/78
[2022-10-08] MEDS: POTASSIUM CHLORIDE 10MEQ SR TABLET PO SCH ×2 (12:32→20:26)
[2022-10-08] MEDS: ACETAMINOPHEN TAB 650MG DOSE (2X325MG) PO PRN (12:33)
[2022-10-08 13:41] LABS: INR 0.93; PROTHROMBIN TIME 12.7 SECONDS (12.5-14.5)
[2022-10-08] MEDS: MIRALAX *UNIT DOSE* 17GM PACKET PO SCH (15:11)
[2022-10-08] MEDS: RIVAROXABAN 10MG TAB (XARELTO) PO SCH (18:08)
[2022-10-08] MEDS ORDERED: cefTRIAXone SOD 1 GM in D5W MINI-BAG PLUS 50 ML IV SCH (20:00)
[2022-10-08 20:16] VITALS: BP 131/57
[2022-10-08] MEDS: QUEtiapine FUMARATE 50MG TAB PO SCH (20:26)
[2022-10-08] MEDS: RAMELTEON 8 MG TAB (ROZEREM) PO PRN (23:05)
[2022-10-09 06:00] VITALS: BP 131/55
[2022-10-09] MEDS: LATANOPROST 0.005% OPHTH SOLN 2.5 ML OU SCH ×2 (06:01→22:12)
[2022-10-09 06:43] LABS: HEMATOCRIT 30.5 % (36.0-47.0); HEMOGLOBIN 9.8 g/dl (12.0-15.5); MEAN CORPUSCULAR HEMOGLOBIN 30.3 pg (27.0-33.0); MEAN CORPUSCULAR HGB CONC 32.1 g/dl (32.0-36.5); MEAN CORPUSCULAR VOLUME 94.4 fl (80.0-96.0); PLATELET COUNT, AUTOMATED 208 10^3/uL (150-450); RED BLOOD COUNT 3.23 10^6/uL (4.00-5.40); WHITE BLOOD COUNT 6.1 10^3/uL (4.0-10.0)
[2022-10-09 08:42] LABS: BLOOD UREA NITROGEN 10 MG/DL (9-23); CALCIUM LEVEL 8.4 MG/DL (8.3-10.6); CARBON DIOXIDE LEVEL 24 MMOL/L (20-31); CHLORIDE LEVEL 112 MMOL/L (98-107); GLOMERULAR FILTRATION RATE > 60.0 (>32); GLUCOSE, FASTING 79 MG/DL (74-106); SODIUM LEVEL 146 MMOL/L (136-145)
[2022-10-09] MEDS: DULoxetine 20MG CAP (CYMBALTA) PO SCH (09:13)
[2022-10-09] MEDS: CEFDINIR 300 MG CAP (OMNICEF) PO SCH ×2 (09:13→22:12)
[2022-10-09] MEDS: PANTOPRAZOLE 40MG TAB (PROTONIX) PO SCH (09:13)
[2022-10-09] MEDS: LACTULOSE 20GM/30ML SYRUP UDC PO SCH (09:13)
[2022-10-09] MEDS: ASPIRIN 81MG ENTERIC TABLET PO SCH (09:13)
[2022-10-09] MEDS: MIRALAX *UNIT DOSE* 17GM PACKET PO SCH (09:13)
[2022-10-09] MEDS: METOPROLOL SUCC *XL* 12.5MG PER 1/2 TAB (TopROL *XL*) PO SCH ×2 (09:15→22:12)
[2022-10-09] MEDS: ACETAMINOPHEN TAB 650MG DOSE (2X325MG) PO PRN (09:29)
[2022-10-09] MEDS: D5W 1,000 ML IV SCH (13:38)
[2022-10-09] MEDS: RIVAROXABAN 10MG TAB (XARELTO) PO SCH (18:43)
[2022-10-09] MEDS: RAMELTEON 8 MG TAB (ROZEREM) PO PRN (22:10)
[2022-10-09] MEDS: ATORVASTATIN 20 MG TAB PO SCH (22:10)
[2022-10-09] MEDS: QUEtiapine FUMARATE 50MG TAB PO SCH (22:12)
[2022-10-10] MEDS: ACETAMINOPHEN TAB 650MG DOSE (2X325MG) PO PRN ×3 (05:44→20:23)
[2022-10-10 06:00] VITALS: BP 127/63
[2022-10-10] MEDS: CEFDINIR 300 MG CAP (OMNICEF) PO SCH ×2 (09:13→20:22)
[2022-10-10] MEDS: ASPIRIN 81MG ENTERIC TABLET PO SCH (09:13)
[2022-10-10] MEDS: D5W 1,000 ML IV SCH (09:13)
[2022-10-10] MEDS: PANTOPRAZOLE 40MG TAB (PROTONIX) PO SCH (09:13)
[2022-10-10] MEDS: MIRALAX *UNIT DOSE* 17GM PACKET PO SCH (09:13)
[2022-10-10] MEDS: METOPROLOL SUCC *XL* 12.5MG PER 1/2 TAB (TopROL *XL*) PO SCH ×2 (09:14→20:22)
[2022-10-10] MEDS: DULoxetine 20MG CAP (CYMBALTA) PO SCH (09:14)
[2022-10-10 14:00] VITALS: BP 127/57
[2022-10-10] MEDS: RIVAROXABAN 10MG TAB (XARELTO) PO SCH (16:57)
[2022-10-10 19:00] VITALS: BP 119/59
[2022-10-10 20:00] VITALS: BP 115/98
[2022-10-10] MEDS: ATORVASTATIN 20 MG TAB PO SCH (20:23)
[2022-10-10] MEDS: QUEtiapine FUMARATE 50MG TAB PO SCH (20:23)
[2022-10-10] MEDS: RAMELTEON 8 MG TAB (ROZEREM) PO PRN (20:23)
[2022-10-10] MEDS: LATANOPROST 0.005% OPHTH SOLN 2.5 ML OU SCH (20:24)
[2022-10-11 06:00] VITALS: BP 126/58
[2022-10-11] MEDS: D5W 1,000 ML IV SCH (06:41)
[2022-10-11 07:02] LABS: APPEARANCE, URINE MANUAL CLEAR (CLEAR); COLOR, URINE MANUAL YELLOW (YELLOW)
[2022-10-11 07:03] LABS: BILIRUBIN, URINE MANUAL NEGATIVE (NEGATIVE); BLOOD URINE MANUAL NEGATIVE (NEGATIVE); GLUCOSE, URINE (UA) MANUAL NEGATIVE (NEGATIVE); KETONE, URINE MANUAL NEGATIVE (NEGATIVE); LEUKOCYTE ESTERASE, URINE MAN NEGATIVE (NEGATIVE); NITRITE, URINE MANUAL NEGATIVE (NEGATIVE); PROTEIN, URINE MANUAL NEGATIVE (NEGATIVE); UROBILINOGEN, URINE MANUAL NORMAL (NORMAL)
[2022-10-11] MEDS: METOPROLOL SUCC *XL* 12.5MG PER 1/2 TAB (TopROL *XL*) PO SCH ×2 (08:32→20:16)
[2022-10-11] MEDS: PANTOPRAZOLE 40MG TAB (PROTONIX) PO SCH (08:32)
[2022-10-11] MEDS: ASPIRIN 81MG ENTERIC TABLET PO SCH (08:32)
[2022-10-11] MEDS: LACTULOSE 20GM/30ML SYRUP UDC PO SCH (08:32)
[2022-10-11] MEDS: CEFDINIR 300 MG CAP (OMNICEF) PO SCH ×2 (08:32→20:13)
[2022-10-11] MEDS: DULoxetine 20MG CAP (CYMBALTA) PO SCH (08:33)
[2022-10-11] MEDS: MIRALAX *UNIT DOSE* 17GM PACKET PO SCH (08:34)
[2022-10-11] MEDS: ACETAMINOPHEN TAB 650MG DOSE (2X325MG) PO PRN (11:50)
[2022-10-11 14:00] VITALS: BP 117/53
[2022-10-11] MEDS: RIVAROXABAN 10MG TAB (XARELTO) PO SCH (18:29)
[2022-10-11] MEDS: QUEtiapine FUMARATE 50MG TAB PO SCH (20:13)
[2022-10-11] MEDS: ATORVASTATIN 20 MG TAB PO SCH (20:14)
[2022-10-11] MEDS: RAMELTEON 8 MG TAB (ROZEREM) PO PRN (20:14)
[2022-10-11] MEDS: LATANOPROST 0.005% OPHTH SOLN 2.5 ML OU SCH (20:16)
[2022-10-12 06:00] VITALS: BP 132/82
[2022-10-12] MEDS: MIRALAX *UNIT DOSE* 17GM PACKET PO SCH (09:50)
[2022-10-12] MEDS: ASPIRIN 81MG ENTERIC TABLET PO SCH (09:51)
[2022-10-12] MEDS: METOPROLOL SUCC *XL* 12.5MG PER 1/2 TAB (TopROL *XL*) PO SCH ×2 (09:51→20:36)
[2022-10-12] MEDS: PANTOPRAZOLE 40MG TAB (PROTONIX) PO SCH (09:52)
[2022-10-12] MEDS: CEFDINIR 300 MG CAP (OMNICEF) PO SCH ×2 (09:52→20:34)
[2022-10-12] MEDS: DULoxetine 20MG CAP (CYMBALTA) PO SCH (09:52)
[2022-10-12] MEDS: ACETAMINOPHEN TAB 650MG DOSE (2X325MG) PO PRN (09:57)
[2022-10-12 13:51] VITALS: BP 121/54
[2022-10-12] MEDS: RIVAROXABAN 10MG TAB (XARELTO) PO SCH (17:40)
[2022-10-12] MEDS: RAMELTEON 8 MG TAB (ROZEREM) PO PRN (20:35)
[2022-10-12] MEDS: QUEtiapine FUMARATE 50MG TAB PO SCH (20:35)
[2022-10-12] MEDS: ATORVASTATIN 20 MG TAB PO SCH (20:35)
[2022-10-12] MEDS: LATANOPROST 0.005% OPHTH SOLN 2.5 ML OU SCH (20:36)
[2022-10-12 21:11] VITALS: BP 122/59
[2022-10-13 06:00] VITALS: BP 114/93
[2022-10-13] MEDS: MIRALAX *UNIT DOSE* 17GM PACKET PO SCH (10:05)
[2022-10-13] MEDS: DULoxetine 20MG CAP (CYMBALTA) PO SCH (10:06)
[2022-10-13] MEDS: ASPIRIN 81MG ENTERIC TABLET PO SCH (10:06)
[2022-10-13] MEDS: PANTOPRAZOLE 40MG TAB (PROTONIX) PO SCH (10:06)
[2022-10-13] MEDS: METOPROLOL SUCC *XL* 12.5MG PER 1/2 TAB (TopROL *XL*) PO SCH ×2 (10:06→23:30)
[2022-10-13] MEDS: LACTULOSE 20GM/30ML SYRUP UDC PO SCH (10:07)
[2022-10-13 14:00] VITALS: BP 133/63
[2022-10-13] MEDS: RIVAROXABAN 10MG TAB (XARELTO) PO SCH (17:47)
[2022-10-13 22:00] VITALS: BP 133/62
[2022-10-13] MEDS: RAMELTEON 8 MG TAB (ROZEREM) PO PRN (23:25)
[2022-10-13] MEDS: LATANOPROST 0.005% OPHTH SOLN 2.5 ML OU SCH (23:25)
[2022-10-13] MEDS: QUEtiapine FUMARATE 50MG TAB PO SCH (23:25)
[2022-10-13] MEDS: ATORVASTATIN 20 MG TAB PO SCH (23:29)
[2022-10-14] MEDS ORDERED: TEMAZEPAM 7.5 MG CAP PO ONE (01:00)
[2022-10-14] MEDS: ACETAMINOPHEN TAB 650MG DOSE (2X325MG) PO PRN ×3 (03:15→20:07)
[2022-10-14] MEDS: MIRALAX *UNIT DOSE* 17GM PACKET PO SCH (09:00)
[2022-10-14] MEDS: PANTOPRAZOLE 40MG TAB (PROTONIX) PO SCH (10:13)
[2022-10-14] MEDS: DULoxetine 20MG CAP (CYMBALTA) PO SCH (10:15)
[2022-10-14] MEDS: ASPIRIN 81MG ENTERIC TABLET PO SCH (10:15)
[2022-10-14] MEDS: METOPROLOL SUCC *XL* 12.5MG PER 1/2 TAB (TopROL *XL*) PO SCH ×2 (10:15→20:07)
[2022-10-14] MEDS: RIVAROXABAN 10MG TAB (XARELTO) PO SCH (18:46)
[2022-10-14] MEDS: QUEtiapine FUMARATE 50MG TAB PO SCH (20:06)
[2022-10-14] MEDS: LATANOPROST 0.005% OPHTH SOLN 2.5 ML OU SCH (20:07)
[2022-10-14] MEDS: ATORVASTATIN 20 MG TAB PO SCH (20:07)
[2022-10-14] MEDS: RAMELTEON 8 MG TAB (ROZEREM) PO PRN (20:07)
[2022-10-15 06:00] VITALS: BP 130/58
[2022-10-15] MEDS: LACTULOSE 20GM/30ML SYRUP UDC PO SCH (09:00)
[2022-10-15] MEDS: MIRALAX *UNIT DOSE* 17GM PACKET PO SCH (09:00)
[2022-10-15] MEDS: PANTOPRAZOLE 40MG TAB (PROTONIX) PO SCH (10:11)
[2022-10-15] MEDS: METOPROLOL SUCC *XL* 12.5MG PER 1/2 TAB (TopROL *XL*) PO SCH ×2 (10:11→20:25)
[2022-10-15] MEDS: ASPIRIN 81MG ENTERIC TABLET PO SCH (10:11)
[2022-10-15] MEDS: DULoxetine 20MG CAP (CYMBALTA) PO SCH (10:11)
[2022-10-15] MEDS ORDERED: QUET50TA4 PO (12:48)
[2022-10-15] MEDS ORDERED: XARE10TA PO (12:48)
[2022-10-15] MEDS ORDERED: RAME8TAB2 PO (12:48)
[2022-10-15] MEDS: RIVAROXABAN 10MG TAB (XARELTO) PO SCH (17:57)
[2022-10-15] MEDS: ACETAMINOPHEN TAB 650MG DOSE (2X325MG) PO PRN ×2 (17:57→22:47)
[2022-10-15] MEDS: ATORVASTATIN 20 MG TAB PO SCH (20:23)
[2022-10-15] MEDS: QUEtiapine FUMARATE 50MG TAB PO SCH (20:25)
[2022-10-15] MEDS: LATANOPROST 0.005% OPHTH SOLN 2.5 ML OU SCH (20:26)
[2022-10-15] MEDS: RAMELTEON 8 MG TAB (ROZEREM) PO PRN (22:47)
[2022-10-15] MEDS ORDERED: diphenhydrAMINE 50MG/ML VIAL IM PRN (23:00)
[2022-10-16] MEDS ORDERED: OXYMETAZOLINE 0.05% NASAL SPRAY (AFRIN) ONE (04:00)
[2022-10-16 06:00] VITALS: BP 129/59
[2022-10-16 06:33] LABS: BASO % 0.2 % (0.0-1.0); EOS # 0.2 10^3/uL (0.0-0.5); EOS % 2.7 % (0.0-3.0); HEMATOCRIT 33.8 % (36.0-47.0); HEMOGLOBIN 10.6 g/dl (12.0-15.5); LYMPH # 1.8 10^3/uL (1.5-5.0); LYMPH % 30.8 % (24.0-44.0); MEAN CORPUSCULAR HEMOGLOBIN 29.5 pg (27.0-33.0); MEAN CORPUSCULAR HGB CONC 31.4 g/dl (32.0-36.5); MEAN CORPUSCULAR VOLUME 94.2 fl (80.0-96.0); MONO # 0.5 10^3/uL (0.0-0.8); MONO % 9.2 % (2.0-8.0); NEUTROPHILS # 3.3 10^3/uL (1.5-8.5); NEUTROPHILS % 56.8 % (36.0-66.0); PLATELET COUNT, AUTOMATED 261 10^3/uL (150-450); RED BLOOD COUNT 3.59 10^6/uL (4.00-5.40); WHITE BLOOD COUNT 5.9 10^3/uL (4.0-10.0)
[2022-10-16 06:52] LABS: INR 1.67; PARTIAL THROMBOPLASTIN TIME 38.4 SECONDS (24.8-34.2)
[2022-10-16 07:04] LABS: BLOOD UREA NITROGEN 13 MG/DL (9-23); CALCIUM LEVEL 9.1 MG/DL (8.3-10.6); CARBON DIOXIDE LEVEL 27 MMOL/L (20-31); CHLORIDE LEVEL 108 MMOL/L (98-107); CREATININE FOR GFR 0.67 MG/DL (0.55-1.30); GLOMERULAR FILTRATION RATE > 60.0 (>32); GLUCOSE, FASTING 92 MG/DL (74-106); POTASSIUM SERUM 3.3 MMOL/L (3.5-5.1); SODIUM LEVEL 144 MMOL/L (136-145)
[2022-10-16] MEDS: MIRALAX *UNIT DOSE* 17GM PACKET PO SCH (08:37)
[2022-10-16 08:44] VITALS: BP 129/59
[2022-10-16] MEDS: ASPIRIN 81MG ENTERIC TABLET PO SCH (08:44)
[2022-10-16] MEDS: PANTOPRAZOLE 40MG TAB (PROTONIX) PO SCH (08:44)
[2022-10-16] MEDS: DULoxetine 20MG CAP (CYMBALTA) PO SCH (08:44)
[2022-10-16] MEDS: METOPROLOL SUCC *XL* 12.5MG PER 1/2 TAB (TopROL *XL*) PO SCH (08:45)
== END 2022-10-16 10:08 ==
LOC: EDBD 17:03 → M ED 17:03 → M ED INP 22:28 → ENRESERV 10-08 10:39 → M MSPAV 10-08 12:22
PROVIDERS: ADMIT Internal Medicine; ATTEND Family Medicine
DX: F03.911 Unspecified dementia, unspecified severity, with agitation (principal); Z60.9 Problem related to social environment, unspecified; I10 Essential (primary) hypertension; E78.5 Hyperlipidemia, unspecified; K21.9 Gastro-esophageal reflux disease without esophagitis; M81.0 Age-related osteoporosis without current pathological fracture; N39.0 Urinary tract infection, site not specified; E87.1 Hypo-osmolality and hyponatremia; F32.A Depression, unspecified; F41.9 Anxiety disorder, unspecified; I25.10 Atherosclerotic heart disease of native coronary artery without angina pectoris; Z79.899 Other long term (current) drug therapy; Z79.82 Long term (current) use of aspirin; Z79.1 Long term (current) use of non-steroidal anti-inflammatories (NSAID); Z88.2 Allergy status to sulfonamides
CPT/HCPCS: 36415; 70450; 80048; 80076; 80143; 80307; 81000; 81002; 81015; 82077; 82140; 84295; 84443; 85025; 85027; 85610; 85730; 87086; 87631; 87635; 93005; 96361; 96365; 96366; 96372; 97161; 97165; 99285; G0378; J0696; J1200